=== PATIENT | male | born 1940 | race Caucasian/White ===

== ENCOUNTER 2025-10-19 06:33 | Inpatient (IN) | payer OTHER ==
[~2025-10-19] VITALS: Ht 177.8 cm; Wt 92.0 kg
--- NOTE | 2025-10-19 07:26 | ED.PDOC ---
History of Present Illness HPI Comments 85-year-old male presents here for [facility] as transfer. Patient was found to have acute kidney injury with a creatinine of 3. Patient states around Thanksgiving time he began to have significant vomiting and went to [facility] October 15. He was admitted there. He states however he did not like it there left against medical advice. He went to [facility] last night and was transferred to [facility] for admission. Patient states the vomiting has stopped. However he continues to feel weak. He also states he has significant leg swelling that began yesterday. Denies any fever or chills. Chief Complaint: General Weakness Time Seen by MD: 06:58 Allergies: Coded Allergies: NO KNOWN ALLERGIES (Unverified , 10/19/25) Mode of Arrival: EMS Past Medical History Past Medical History (Other): High blood pressure Surgical History (Other): Bilateralhip replacements in 2007 Family History Family History: Reviewed,noncontributory to illness Social History Smoker: Non-Smoker Alcohol: Denies ETOH Use Drugs: Denies Drug Use Lives In: Home All Other Systems: Reviewed and Negative Physical Exam General Appearance: No Apparent Distress, Normal HEENT: Normal ENT Inspection, Pharynx Normal, TMs Normal Neck: Full Range of Motion, Non-Tender, Normal, Normal Inspection Respiratory: Chest Non-Tender, Lungs Clear, No Accessory Muscle Use, No Respiratory Distress, Normal Breath Sounds Cardiovascular: No Edema, No JVD, No Murmur, No Gallop, Normal Peripheral Pulses, Regular Rate/Rhythm Breast Exam: Deferred Gastrointestinal: No Organomegaly, Normal Bowel Sounds, Soft Genitalia: Deferred Pelvic: Deferred Rectal: Deferred Extremities: Leg edema, Other (3+ pitting edema bilateral lower extremity) Musculoskeletal : Apperance: Normal Neurologic: Alert, 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 Was a procedure done?: No Differential Dx Considerations may include: Dehydration acute kidney injury, appendicitis, small-bowel obstruction, electrolyte disturbance X-Ray, Labs, Meds, VS Vital Signs Date Time Temp Pulse Resp B/P (MAP) Pulse Ox O2 Delivery O2 Flow Rate FiO2 10/19/25 08:26 70 15 99 Room Air* 0 21 10/19/25 08:26 97.5 70 15 93/57 (69) 99 97.5 10/19/25 07:01 97.4 69 17 98/56 (70) 99 97.4 10/19/25 06:49 97.7 66 14 129/68 96 97.7 Lab Test 10/19/25 08:06 Range/Units White Blood Count 8.2 4.4-10.8 10^3/uL Red Blood Count 4.02 L 4.5-5.90 10^6/uL Hemoglobin 12.2 L 13.5-17.5 g/dL Hematocrit 39.0 L 41.0-53.0 % Mean Corpuscular Volume 97.2 80.0-100.0 fL Mean Corpuscular Hemoglobin 30.4 28.0-32.0 pg Mean Corpuscular Hemoglobin Concent 31.3 L 32.0-36.0 g/dL Red Cell Distribution Width 15.7 H 11.8-14.3 % Platelet Count 81 L 140-450 10^3/uL Mean Platelet Volume 10.5 6.9-10.8 fL Neutrophils (%) (Auto) 37.0-80.0 % Lymphocytes (%) (Auto) 10.0-50.0 % Monocytes (%) (Auto) 0.0-12.0 % Basophils (%) (Auto) 0.0-2.0 % Neutrophils # (Auto) 1.6-8.6 10 ^3/uL Lymphocytes # (Auto) 0.4-5.4 10 ^3/uL Monocytes # (Auto) 0-1.3 10 ^3/uL Differential Total Cells Counted Pending Neutrophils % (Manual) Pending Band Neutrophils % (Manual) Pending Lymphocytes % (Manual) Pending Monocytes % (Manual) Pending Eosinophils % (Manual) Pending Basophils % (Manual) Pending Metamyelocytes % (manual) Pending Myelocytes % (Manual) Pending Promyelocytes % (Manual) Pending Blast Cells % (Manual) Pending Reactive Lymphocytes Pending Platelet Estimate Pending Sodium Level 144 136-145 mmol/L Potassium Level 5.2 H 3.5-5.1 mmol/L Chloride Level 112 H 98-107 mmol/L Carbon Dioxide Level 17 L 20-31 mmol/L Anion Gap 15 5-15 Blood Urea Nitrogen 119 *H 9-23 mg/dL Creatinine 3.06 H 0.700-1.30 mg/dL Glomerular Filtration Rate Calc 19 >90 mL/min BUN/Creatinine Ratio 38.9 H 10.0-20.0 Serum Glucose 77 74-106 mg/dL Calcium Level 8.0 L 8.7-10.4 mg/dL B-Type Natriuretic Peptide Pending 85-year-old male presents here from [facility]. I have reviewed all records from [facility]. I reviewed the physician record from [facility] which states the patient was seen there for bilateral lower extremity swelling. And generalized weakness. I reviewed his labs, CBC within normal limits, elevated BUN and elevated creatinine. Creatinine is 3. Patient also has slightly elevated potassium at 4.8. Troponin is negative. Chest x-ray with no evidence of acute pathology. At this time I have ordered labs here in the hospital. CBC within normal limits. BNP with a potassium elevated at 5.2, low CO2 of 17, BUN of 119 creatinine of 3.06. Exact cause of his acute kidney injuries unclear however this could be he has 2 new diagnosis of heart failure and decreased urine output. At this time BNP has been ordered and is pending. Hospitalist team has been contacted for admission. Time of 1ST Reevaluation: 07:25 Reevaluation 1ST: Unchanged Patient Education/Counseling: Diagnosis, Treatment Family Education/Counseling: No Family Present SEPSIS Sepsis Screen Date sepsis recognized/suspect: Oct 19, 2025 Time Sepsis recognized/suspect: 0649 Recent Procedure: No On Antibiotic Therapy: No Respiratory Rate >20: No Heart Rate >90: No Temp<36 C (96.8 F) or >38.3 C: No SBP <90 or MAP <65 mmHG: No New Acute Mental Status Change: No Is the patient on CPAP, BIPAP,: No Physician Orders Complete Blood Count (10/19/25 07:27) Manual Differential (10/19/25 08:06) B-Type Natriuretic Peptide (10/19/25 09:06) Vital Signs Date Time Temp Pulse Resp B/P (MAP) Pulse Ox O2 Delivery O2 Flow Rate FiO2 10/19/25 08:26 70 15 99 Room Air* 0 21 10/19/25 08:26 97.5 70 15 93/57 (69) 99 97.5 10/19/25 07:01 97.4 69 17 98/56 (70) 99 97.4 10/19/25 06:49 97.7 66 14 129/68 96 97.7 Laboratory Tests Test 10/19/25 08:06 White Blood Count 8.2 10^3/uL (4.4-10.8) Departure 1 Departure Time of Disposition: 07:26 Impression: Primary Impression: Acute kidney injury Additional Impressions: Hyperkalemia Bilateral edema of lower extremity Disposition: ADMITTED INPATIENT Condition: Fair Critical Care Note Critical Care Time?: No Stability Stability form required: No Heart Score Heart Score: Heart Score Response (Comments) Value History N/A 0 EKG N/A 0 Age N/A 0 Risk Factors N/A 0 Troponin N/A 0 Total 0 GARRY PALMER MD Oct 19, 2025 07:26
[2025-10-19 08:26] VITALS: PULSE 70; RESP 15; O2SAT 99
[2025-10-19 08:49] LABS: Sodium 144 mmol/L (136-145)
[2025-10-19 08:50] LABS: Anion Gap 15 (5-15)
[2025-10-19 08:52] LABS: Calcium 8.0 mg/dL (8.7-10.4); Carbon Dioxide 17 mmol/L (20-31); Chloride 112 mmol/L (98-107); Potassium 5.2 mmol/L (3.5-5.1)
[2025-10-19 08:55] LABS: BUN/Creatinine Ratio 38.9 (10.0-20.0); Glucose 77 mg/dL (74-106)
[2025-10-19 08:56] LABS: Hematocrit 39.0 % (41.0-53.0); Hemoglobin 12.2 g/dL (13.5-17.5); Mean Corpuscular Hemoglobin 30.4 pg (28.0-32.0); Mean Corpuscular Volume 97.2 fL (80.0-100.0)
[2025-10-19 08:59] LABS: Blood Urea Nitrogen 119 mg/dL (9-23)
[2025-10-19] MEDS ORDERED: ONDANSETRON HCL 4 MG/2 ML VIAL IV PRN (09:30)
[2025-10-19] MEDS ORDERED: DOCUSATE SOD 100 MG CAP PO PRN (09:30)
[2025-10-19] MEDS ORDERED: TEMAZEPAM 15 MG CAP PO PRN (09:30)
[2025-10-19] MEDS ORDERED: NITROGLYCERIN 0.4 MG SL TAB SL PRN (09:30)
--- NOTE | 2025-10-19 09:32 | DVHHP2 ---
History of Present Illness Reason for Visit: weakness and ble History of Present Illness 85-year-old male with a past medical history of bladder cancer (in remission), hypertension, and bilateral hip replacements presents with generalized weakness and bilateral lower extremity swelling. Patient reports that he initially experienced shortness of breath at home shortly before Thanksgiving and was taken to [facility], where he was admitted for eight days. He signed out against medical advice (AMA) due to concerns about lack of response to his calls for assistance. He returned home and remained sitting in his living room for about a day and a half before his neighbor found him and brought him to [facility]. There, he was noted to have diarrhea, which is ongoing, and had some vomiting that has since resolved. Due to his complex history and preference for [facility] where he receives most of his care, he was transferred here for further evaluation. At [facility], labs showed a creatinine of 3.20 and a WBC count of 81,000. Chest x-ray there was unremarkable. Labs in the ED here revealed normal white count, hemoglobin 12.2 and hematocrit 39.0, but platelets were low. Potassium was 5.2, chloride 112, CO2 17, BUN 119, creatinine 3.06, GFR 19, and calcium 8.0. Chest x-ray from outside remained unremarkable. Due to these findings and history, the patient will be admitted for further workup of acute kidney injury, hyperkalemia, and generalized weakness. Past Medical History See HPI above Past Surgical History See HPI above Family History Reviewed, non-contributory to the management of this case. Past Social History The patient lives at home, denies smoking, alcohol or illicit drugs abuse. Review of Systems Constitutional: No: Fever, Chills, Sweats, Weakness, Malaise, Other Eyes: No: Pain, Vision change, Conjunctivae inflammation, Eyelid inflammation, Other, Redness ENT: No: Ear pain, Ear discharge, Nose pain, Nose discharge, Nose congestion, Mouth pain, Mouth swelling, Throat pain, Throat swelling, Other Respiratory: No: Cough, Dry, Shortness of breath, SOB with excertion, Wheezing, Hemoptysis, Pleuritic Pain, Sputum, Wheezing, Other Cardiovascular: No: Chest Pain, Palpitations, Orthopnea, Paroxysmal Noc. Dyspnea, Edema, Lt Headedness, Other Gastrointestinal: Diarrhea; No: Nausea, Vomiting, Abdominal Pain, Constipation, Melena, Hematochezia, Other Genitourinary: No Dysuria, No Frequency, No Incontinence, No Hematuria, No Retention, No Other Musculoskeletal: leg pain; No: other, neck pain, shoulder pain, arm pain, back pain, hand pain, foot pain Skin: Other (Altered blistering to bilateral lower extremities no erythema is mild bruising also noted and bilateral lower extremity edema); No: Rash, Lesions, Jaundice, Bruising Neurological: Weakness; No: Numbness, Incoordination, Change in speech, Confusion, Seizures, Other Allergies: Coded Allergies: NO KNOWN ALLERGIES (Unverified , 10/19/25) Exam Vital Signs Vital Signs Date Time Temp Pulse Resp B/P (MAP) Pulse Ox O2 Delivery O2 Flow Rate FiO2 10/19/25 08:26 70 15 99 Room Air* 0 21 10/19/25 08:26 97.5 93/57 (69) 97.5 General Appearance: Alert, Oriented X3, Cooperative, No acute distress HEENT: Atraumatic, PERRLA, EOMI, Mucous membr. moist/pink Respiratory: Clear to auscultation, Normal air movement Cardiovascular: Regular rate, Normal S1, Normal S2, No murmurs Abdominal: Normal bowel sounds, Soft, No tenderness, No hepatospenomegaly, Other (Perineum swelling) Extremities: No clubbing, No cyanosis, Other (Bilateral lower extremity with edema scattered blistering to bilateral lower extremity some scattered bruising no open wounds compartments soft neurovascular intact) Skin: No rashes, No breakdown, No significant lesion Neuro: Other (Neuro nonfocal) Psych/Mental Status: Mental status NL, Mood NL Labs/Xrays Reviewed labs from outside I reviewed labs, imaging CT scan abdomen pelvis, EKG and all diagnostic studies on this patient from ED records and the medical chart Chest x-ray from outside unremarkable Labs Test 10/19/25 08:06 Range/Units White Blood Count 8.2 4.4-10.8 10^3/uL Red Blood Count 4.02 L 4.5-5.90 10^6/uL Hemoglobin 12.2 L 13.5-17.5 g/dL Hematocrit 39.0 L 41.0-53.0 % Mean Corpuscular Volume 97.2 80.0-100.0 fL Mean Corpuscular Hemoglobin 30.4 28.0-32.0 pg Mean Corpuscular Hemoglobin Concent 31.3 L 32.0-36.0 g/dL Red Cell Distribution Width 15.7 H 11.8-14.3 % Platelet Count 81 L 140-450 10^3/uL Mean Platelet Volume 10.5 6.9-10.8 fL Neutrophils (%) (Auto) 37.0-80.0 % Lymphocytes (%) (Auto) 10.0-50.0 % Monocytes (%) (Auto) 0.0-12.0 % Basophils (%) (Auto) 0.0-2.0 % Neutrophils # (Auto) 1.6-8.6 10 ^3/uL Lymphocytes # (Auto) 0.4-5.4 10 ^3/uL Monocytes # (Auto) 0-1.3 10 ^3/uL Sodium Level 144 136-145 mmol/L Potassium Level 5.2 H 3.5-5.1 mmol/L Chloride Level 112 H 98-107 mmol/L Carbon Dioxide Level 17 L 20-31 mmol/L Anion Gap 15 5-15 Blood Urea Nitrogen 119 *H 9-23 mg/dL Creatinine 3.06 H 0.700-1.30 mg/dL Glomerular Filtration Rate Calc 19 >90 mL/min BUN/Creatinine Ratio 38.9 H 10.0-20.0 Serum Glucose 77 74-106 mg/dL Calcium Level 8.0 L 8.7-10.4 mg/dL SEPSIS Sepsis Screen Date sepsis recognized/suspect: Oct 19, 2025 Time Sepsis recognized/suspect: 0649 Recent Procedure: No On Antibiotic Therapy: No Respiratory Rate >20: No Heart Rate >90: No Temp<36 C (96.8 F) or >38.3 C: No SBP <90 or MAP <65 mmHG: No New Acute Mental Status Change: No Is the patient on CPAP, BIPAP,: No Physician Orders Complete Blood Count (10/19/25 07:27) Manual Differential (10/19/25 08:06) B-Type Natriuretic Peptide (10/19/25 09:06) Troponin-I Hs (10/19/25 09:22) Troponin-I Hs (10/19/25 10:22) Troponin-I Hs (10/19/25 12:22) Sodium Zirconium Cyclosilicate (Lokelma) (10/19/25 09:30) Strict I & O QSHIFT (10/19/25 09:22) Kidney (10/19/25 09:22) Admit (10/19/25 09:22) Allergies (10/19/25 09:22) Code Status (10/19/25 09:22) Temazepam (Restoril) (10/19/25 09:30) Ondansetron Hcl (Zofran) (10/19/25 09:30) Docusate Sodium Capsule (Colace Capsule) (10/19/25 09:30) Complete Blood Count (10/20/25 04:00) Comprehensive Metabolic Panel (10/20/25 04:00) Cardiac Diet-2gna,Lofat,Lochol (10/19/25 Breakfast) Pt Request For Service (10/19/25 09:22) Echo 2d Mode Cardiac Dop (10/19/25 09:22) Condition: Stable (10/19/25 09:22) BRP (10/19/25 09:22) Morphine Sulfate Injection (10/19/25 09:30) Sequential Compression Device (10/19/25 ) Nitroglycerin Sublingual (Ntrostat Subli (10/19/25 09:30) Stat Ekg For Chest Pain (10/19/25 09:22) Notify Md Of Changes From Base (10/19/25 09:22) Well Service Floorperson For 24 Hours (10/19/25 09:22) Emergency Dysrhythmia Protocol (10/19/25 09:22) Rhythm Strips Once Every Shift (10/19/25 09:22) Oxygen By Nasal Cannula (10/19/25 09:22) *[facility] (10/19/25 09:22) * Wound Consult (10/19/25 ) Bilat Lower Dvt (10/19/25 09:22) Vital Signs Date Time Temp Pulse Resp B/P (MAP) Pulse Ox O2 Delivery O2 Flow Rate FiO2 10/19/25 08:26 70 15 99 Room Air* 0 21 10/19/25 08:26 97.5 70 15 93/57 (69) 99 97.5 10/19/25 07:01 97.4 69 17 98/56 (70) 99 97.4 10/19/25 06:49 97.7 66 14 129/68 96 97.7 Laboratory Tests Test 10/19/25 08:06 White Blood Count 8.2 10^3/uL (4.4-10.8) Assessment/Plan Assessment/Plan 85-year-old male admitted for acute kidney injury with hyperkalemia, generalized weakness, and diarrhea in the setting of recent hospitalization and poor oral intake. Acute Kidney Injury (Cr 3.06, GFR 19, BUN 119) Likely multifactorial: volume depletion, recent illness, possible medication effects Renal consult dr hartman fu results Renal ultrasound fu results IV fluid hydration (monitor for fluid overload due to age and cardiac status) Monitor BMP and renal function daily Hold nephrotoxic medications acute Hyperkalemia (K 5.2) Stat repeat potassium level EKG to assess for arrhythmias ordered [facility] Monitor renal function closely acute Generalized weakness / deconditioning Likely secondary to recent illness and inactivity Physical therapy evaluation Encourage mobility and ambulation as tolerated acute ble edema ordered bnp and trop eval if heart failure ordered echo ordered us to eval for dvt strict i/o's acute Diarrhea (persistent) Stool studies (C. diff,) Monitor fluid and electrolyte status Hold any potential offending medications Supportive care with hydration acute Thrombocytopenia (platelets low) Trend platelet counts Review any recent medications or infections Hematology consult if platelets continue to drop or symptomatic no dvt ppx for now History of bladder cancer (in remission) No acute intervention at this time Continue to monitor for any urinary symptoms or hematuria chronic problems Hypertension Bladder cancer (in remission) Bilateral hip replacements FEN / PPx Fluids: IV hydration, monitor for overload Electrolytes: Daily BMP, potassium, BUN/Cr Nutrition: cardiac diet DVT Prophylaxis: SCDs while inpatient GI Prophylaxis: no gi ppx since no hx of gerds or gi bleed Disposition Admit to medical floor for renal monitoring, electrolyte correction, and workup of diarrhea and weakness. Consult nephrology consulted Plan discussed with: Patient My Orders Orders - BENNETT MENDOZA DNP Procedure Category Date Status Time Troponin-I Hs LAB 10/19/25 Transmitted 09:22 Troponin-I Hs LAB 10/19/25 Transmitted 10:22 Troponin-I Hs LAB 10/19/25 Transmitted 12:22 Sodium Zirconium PHA 10/19/25 Transmitted Cyclosilicate 09:30 Strict I & O CANDIDA 10/19/25 Transmitted 09:22 Kidney US 10/19/25 Transmitted 09:22 Admit ADMIT 10/19/25 Transmitted 09:22 Allergies CANDIDA 10/19/25 Transmitted 09:22 Code Status CODE 10/19/25 Transmitted 09:22 Temazepam (Restoril) PHA 10/19/25 Transmitted 09:30 Ondansetron Hcl PHA 10/19/25 Transmitted (Zofran) 09:30 Docusate Sodium PHA 10/19/25 Transmitted Capsule (Colace 09:30 Complete Blood Count LAB 10/20/25 Verified 04:00 Comprehensive LAB 10/20/25 Verified Metabolic Panel 04:00 Cardiac DIET 10/19/25 Transmitted Diet-2gna,Lofat,Lochol Breakfast Pt Request For Service PT 10/19/25 Transmitted 09:22 Echo 2d Mode Cardiac US 10/19/25 Transmitted DOP 09:22 Condition: Stable CANDIDA 10/19/25 Transmitted 09:22 BRP CANDIDA 10/19/25 Transmitted 09:22 Morphine Sulfate PHA 10/19/25 Transmitted Injection 09:30 Sequential CANDIDA 10/19/25 Transmitted Compression Device Nitroglycerin PHA 10/19/25 Transmitted Sublingual (Ntrostat 09:30 Stat Ekg For Chest CANDIDA 10/19/25 Transmitted Pain 09:22 Notify Md Of Changes [facility] 10/19/25 Transmitted From Base 09:22 Well Service Floorperson For [facility] 10/19/25 Transmitted 24 Hours 09:22 Emergency Dysrhythmia [facility] 10/19/25 Transmitted Protocol 09:22 Rhythm Strips Once [facility] 10/19/25 Transmitted Every Shift 09:22 Oxygen By Nasal RT 10/19/25 Transmitted Cannula 09:22 *[facility] CONS 10/19/25 Transmitted -[place] 09:22 * Wound Consult CONS 10/19/25 Transmitted Bilat Lower Dvt US 10/19/25 Transmitted 09:22 Date of Service: Oct 19, 2025 Billing Provider: BENNETT MENDOZA DNP Common Visit Codes: 32706-[id number] INP/OBS CARE (HIGH) BENNETT MENDOZA DNP Oct 19, 2025 09:32
[2025-10-19 09:33] LABS: Total Cells Counted 100.0 (100)
[2025-10-19 09:34] LABS: RBC Morphology Normal
[2025-10-19] MEDS ORDERED: MORPHINE SULFATE 4 MG/ML SYR/VIAL IV PRN (09:45)
[2025-10-19] MEDS: SODIUM ZIRCONIUM CYCL 10 GM PAK PO ONE (09:51)
[2025-10-19] MEDS: SODIUM CHLORIDE 0.9% 1,000 ML IV SCH (10:16)
--- NOTE | 2025-10-19 10:29 | DVH ---
CLINICAL HISTORY: eval for dvt to ble/swelling TECHNIQUE: Color and duplex doppler imagine of the bilateral lower extremity veins was performed. Vessel compression and augmentation if possible was also performed. COMPARISON: None FINDINGS: Right Lower Extremity: Right common femoral vein: Normal compressibility and flow. Right superficial femoral vein: Normal compressibility and flow. Right popliteal vein: Normal compressibility and flow. Left Lower Extremity: Left common femoral vein: Normal compressibility and flow. Left superficial femoral vein: Normal compressibility and flow. Left popliteal vein: Normal compressibility and flow. IMPRESSION: NO SONOGRAPHIC EVIDENCE FOR DEEP VENOUS THROMBOSIS IN THE BILATERAL LOWER EXTREMITY VEINS.
--- NOTE | 2025-10-19 10:31 | DVH ---
CLINICAL HISTORY: eval for acute on chronic mandeep TECHNIQUE: Complete ultrasound exam of the kidneys and bladder was performed. COMPARISON: None FINDINGS: The right kidney has mildly increased echogenicity and measures 9.7 cm. There is no focal parenchymal abnormality or evidence for stone. There is mild pelvicaliectasis. The left kidney has increased echogenicity and measures 12.2 cm. There is no focal parenchymal abnormality or evidence for stone. There is moderate to severe hydronephrosis. The bladder contains a possible 10 mm stone. IMPRESSION: Echogenic kidneys, compatible medical renal disease. Moderate to severe left hydronephrosis. Mild right renal pelvicaliectasis. Possible 10 mm bladder stone.
--- NOTE | 2025-10-19 12:57 | DVHCONRES ---
Date Seen: Oct 19, 2025 Resident Creating Document: ZAY AUGUSTE RESIDENT Referring Physician Erin VERNON Reason for Consultation jeanette History of Present Illness [place] is a 85-year-old male with a past medical history of bladder cancer (in remission), hypertension, and bilateral hip replacements presents with generalized weakness and bilateral lower extremity swelling. Patient reports that he initially experienced shortness of breath at home shortly before Thanksgiving and was taken to [facility], where he was admitted for eight days. He signed out against medical advice (AMA) due to concerns about lack of response to his calls for assistance. He returned home and remained sitting in his living room for about a day and a half before his neighbor found him and brought him to [facility]. There, he was noted to have diarrhea, which is ongoing, and had some vomiting that has since resolved. Due to his complex history and preference for [facility] where he receives most of his care, he was transferred here for further evaluation. PMH: Bladder cancer and HTN PSH: Bilateral hip replacement Family history: Reviewed, noncontributory Social history: Lives at home. Denies smoking, alcohol and other drug abuse Allergies: No known allergies Patient seen and examined at the bedside. Patient reporting having diarrhea, leg pain and weakness. Rest of ROS is negative Allergies: Coded Allergies: NO KNOWN ALLERGIES (Unverified , 10/19/25) Home Meds Reported Medications Tamsulosin Hcl (Tamsulosin Hcl) 0.4 Mg Cap, 1 CAP PO DAILY 10/19/25 Finasteride (Finasteride) 5 Mg Tab, 1 TAB PO DAILY 10/19/25 Metoprolol Succinate (Metoprolol Succinate Er) 50 Mg Tab, 1 TAB PO DAILY 10/19/25 Current Medications Current Medications Medications (Trade) Dose Ordered Sig/Jhon Route PRN Reason Start Time Stop Time Status Last Admin Temazepam (Restoril) 15 mg QHSP PRN PO FOR INSOMNIA 10/19/25 09:30 Ondansetron HCl (Zofran) 4 mg Q4HP PRN IV NAUSEA / VOMITING 10/19/25 09:30 Docusate Sodium (Colace Capsule) 100 mg BIDPRN PRN PO FOR CONSTIPATION 10/19/25 09:30 Morphine Sulfate 2 mg Q4HPRN PRN IV SEVERE PAIN (7-10 PAIN SCALE) 10/19/25 09:45 Nitroglycerin (Ntrostat Sublingual) 0.4 mg Q5MINP PRN SL FOR CHEST PAIN 10/19/25 09:30 Sodium Chloride 1,000 ml @ 75 mls/hr [id number] IV 10/19/25 10:15 10/19/25 11:33 DC 10/19/25 10:16 Sodium Bicarbonate 50 ml/ Sodium Chloride 1,050 ml @ 100 mls/hr [id number] IV 10/19/25 11:30 Vital Signs Vital Signs Date Time Temp Pulse Resp B/P (MAP) Pulse Ox O2 Delivery O2 Flow Rate FiO2 10/19/25 11:29 71 14 102/54 (70) 100 10/19/25 08:26 Room Air* 0 21 10/19/25 08:26 97.5 97.5 Physical Exam General Appearance: Alert, Oriented X3, Cooperative, No acute distress HEENT: Atraumatic, PERRLA, EOMI, Mucous membr. moist/pink Respiratory: Clear to auscultation, Normal air movement Cardiovascular: Regular rate, Normal S1, Normal S2, No murmurs Abdominal: Normal bowel sounds, Soft, No tenderness, No hepatospenomegaly, Othe r (Perineum swelling) Extremities: Bilateral lower extremity with edema scattered blistering to bilateral lower extremity some scattered bruising no open wounds compartments soft neurovascular intact Skin: No rashes, No breakdown, No significant lesion Neuro: Other (Neuro nonfocal) Psych/Mental Status: Mental status NL, Mood NL Labs/Diagnostic Data Labs Test 10/19/25 10:34 10/19/25 08:06 Range/Units Troponin I High Sensitivity 12 </=54 ng/L White Blood Count 8.2 4.4-10.8 10^3/uL Red Blood Count 4.02 L 4.5-5.90 10^6/uL Hemoglobin 12.2 L 13.5-17.5 g/dL Hematocrit 39.0 L 41.0-53.0 % Mean Corpuscular Volume 97.2 80.0-100.0 fL Mean Corpuscular Hemoglobin 30.4 28.0-32.0 pg Mean Corpuscular Hemoglobin Concent 31.3 L 32.0-36.0 g/dL Red Cell Distribution Width 15.7 H 11.8-14.3 % Platelet Count 81 L 140-450 10^3/uL Mean Platelet Volume 10.5 6.9-10.8 fL Neutrophils (%) (Auto) 37.0-80.0 % Lymphocytes (%) (Auto) 10.0-50.0 % Monocytes (%) (Auto) 0.0-12.0 % Basophils (%) (Auto) 0.0-2.0 % Neutrophils # (Auto) 1.6-8.6 10 ^3/uL Lymphocytes # (Auto) 0.4-5.4 10 ^3/uL Monocytes # (Auto) 0-1.3 10 ^3/uL Differential Total Cells Counted 100.0 100 Neutrophils % (Manual) 34 L 37.0-80.0 Band Neutrophils % (Manual) 0 Lymphocytes % (Manual) 16 10.0-50.0 Monocytes % (Manual) 50 H 0-12 Eosinophils % (Manual) 0 0-7 Basophils % (Manual) 0 0.0-2.0 Metamyelocytes % (manual) 0 Myelocytes % (Manual) 0 Promyelocytes % (Manual) 0 Blast Cells % (Manual) 0 Reactive Lymphocytes 0 Platelet Estimate Decreased Red Blood Cell Morphology Normal Sodium Level 144 136-145 mmol/L Potassium Level 5.2 H 3.5-5.1 mmol/L Chloride Level 112 H 98-107 mmol/L Carbon Dioxide Level 17 L 20-31 mmol/L Anion Gap 15 5-15 Blood Urea Nitrogen 119 *H 9-23 mg/dL Creatinine 3.06 H 0.700-1.30 mg/dL Glomerular Filtration Rate Calc 19 >90 mL/min BUN/Creatinine Ratio 38.9 H 10.0-20.0 Serum Glucose 77 74-106 mg/dL Calcium Level 8.0 L 8.7-10.4 mg/dL B-Type Natriuretic Peptide 47.48 0-100 pg/mL Assessment JEANETTE likely hemodynamic mediated VMN Moderate to severe left hydronephrosis Nephrolithiasis Hyperkalemia Diarrhea Dehydration Plan/recommendations IV fluids half NS Continuously monitor lab Urine studies, PTH and vit D Rucker catheter Renal ultrasound showed compatible with medical renal disease and hydronephrosis with a 10 mm bladder stone Avoid nephrotoxic agents Blood pressure control Rest of management primary team Patient seen and examined by myself today on rounds with the medicine resident, I agree with his assessment and plan Case discussed with the Dr. Bills Plan discussed with: Patient, Other (rn) ZAY AUGUSTE Oct 19, 2025 12:57 YECENIA BILLS MD Oct 20, 2025 09:44
[2025-10-19 13:14] LABS: Magnesium 2.0 mg/dL (1.6-2.6)
[2025-10-19] MEDS: SODIUM BICARB 50mEq/50ml Vial 50 ML in SOD CHL 0.45% 1,000 ML IV SCH (13:18)
[2025-10-19 14:21] LABS: Protein, Urine 21.6 mg/dL (1-14)
[2025-10-19 14:22] LABS: Urine Protein, UAD Negative (Negative)
[2025-10-19 15:24] LABS: Hepatitis B Surface Antigen Negative (Negative); Hepatitis C Antibody Negative (Negative)
[2025-10-19 19:32] VITALS: BP 114/67; PULSE 65; RESP 20; TEMP 97.5; O2SAT 95
[2025-10-19] MEDS ORDERED: METO-289 PO (20:32)
[2025-10-19] MEDS ORDERED: FIN5T PO (20:32)
[2025-10-19] MEDS ORDERED: TAMS0.4C39 PO (20:32)
[2025-10-19 21:00] VITALS: BP_SYST 105; BP_SYST 112; BP_DIAS 63; BP_DIAS 66; PULSE 69; PULSE 79; RESP 19; RESP 20; TEMP 97.2; TEMP 98; O2SAT 95; O2SAT 98
[2025-10-20] VITALS (9 sets, daily range): BP systolic 90–128; BP diastolic 50–74; PULSE 56–142; RESP 17–20; TEMP 96.2–97.7; O2SAT 91–96
[2025-10-20 08:05] LABS: Hematocrit 31.0 % (41.0-53.0); Hemoglobin 9.9 g/dL (13.5-17.5); Mean Corpuscular Hemoglobin 30.8 pg (28.0-32.0); Mean Corpuscular Volume 96.3 fL (80.0-100.0)
[2025-10-20 08:36] LABS: Total Cells Counted 100.0 (100)
[2025-10-20 08:49] LABS: Alanine Aminotransferase 20 U/L (7-40); Alkaline Phosphatase 49 U/L (46-116); Carbon Dioxide 22 mmol/L (20-31)
[2025-10-20 08:50] LABS: Anion Gap 12 (5-15); BUN/Creatinine Ratio 36.3 (10.0-20.0); Bilirubin, Total 0.7 mg/dL (0.2-1.0); Potassium 4.6 mmol/L (3.5-5.1); Sodium 145 mmol/L (136-145)
[2025-10-20 08:51] LABS: Albumin 2.1 g/dL (3.2-4.8); Blood Urea Nitrogen 78 mg/dL (9-23); Calcium 7.4 mg/dL (8.7-10.4); Chloride 111 mmol/L (98-107); Glucose 69 mg/dL (74-106); Total Protein 3.8 g/dL (5.7-8.2)
--- NOTE | 2025-10-20 11:17 | DVHPN2 ---
Progress Note Date Seen: Oct 20, 2025 Medical Necessity Reason Pt with a Central, PICC or Fol: No Subjective Patient reports: No new complaints Other Systems: Patient seen and examined by myself today in follow-up Objective vital signs Vital Sign Date Time Temp Pulse Resp B/P (MAP) Pulse Ox O2 Delivery O2 Flow Rate FiO2 10/20/25 09:00 97.6 62 18 111/72 (85) 93 97.6 10/20/25 08:00 Nasal Cannula* 3 32 Total Intake and Output 10/19/25 10/19/25 10/20/25 15:00 23:00 07:00 Intake Total 200 ml 300 ml 300 ml Output Total 200 ml 1120 ml 550 ml Balance 0 ml -820 ml -250 ml medications Current Medications Medications Dose Ordered Sig/Jhon Route Start Time Stop Time Status Last Admin Dose Admin Docusate Sodium 100 mg BIDPRN PRN PO 10/19/25 09:30 Sodium Bicarbonate 50 ml/ Sodium Chloride 1,050 ml @ 100 mls/hr [id number] IV 10/19/25 11:30 10/19/25 22:19 100 MLS/HR Examination: LUNGS:Normal, CVS:Normal, MSK:Abnormal laboratory and microbiology Laboratory Tests 10/20/25 06:39 Test 10/20/25 06:39 Range/Units Serum Glucose 69 L 74-106 mg/dL Problem List/Assessment/Plan Problem List/Assessment/Plan Acute kidney injury superimposed Chronic Kidney Disease secondary hemodynamic mediated, FeNa > 2% Moderate to severe left hydronephrosis Nephrolithiasis Hyperkalemia Metabolic acidosis Hypoalbuminemia Chronic kidney disease Recommendations Kidney function slowly improving Increased urine output Strict I&Os DC IV fluid Albumin 25% IV piggyback Bumex 1 mg IV b.i.d. Urology consult We will continue to follow up Plan discussed with: Patient My Orders My Orders Orders - YECENIA MINA MD Procedure Category Date Status Time Sod Chl 0.45% PHA 10/19/25 In Process (Sodi... W/Sodium 11:30 Albumin Ivpb PHA 10/20/25 Verified 11:15 Bumetanide Injection PHA 10/20/25 Verified (Bumex Injection) 11:15 YECENIA MINA MD Oct 20, 2025 11:17
--- NOTE | 2025-10-20 11:21 | DVHPN2 ---
Subjective looks rested/ Changes from previous H/P or p: No Changes Eyes: No Pain, No Vision change, No Conjunctivae inflammation, No Eyelid inflammation, No Other, No Redness ENT: No Ear pain, No Ear discharge, No Nose pain, No Nose discharge, No Nose congestion, No Mouth pain, No Mouth swelling, No Throat pain, No Throat swelling, No Other Cardiovascular: No Chest Pain, No Palpitations, No Orthopnea, No Paroxysmal Noc. Dyspnea, No Edema, No Lt Headedness, No Other Respiratory: No Cough, No Dry, No Shortness of breath, No SOB with excertion, No Wheezing, No Hemoptysis, No Pleuritic Pain, No Sputum, No Other Gastrointestinal: No Nausea, No Vomiting, No Abdominal Pain; Diarrhea; No Constipation, No Melena, No Hematochezia, No Other Genitourinary: No Dysuria, No Frequency, No Incontinence, No Hematuria, No Retention, No Other Musculoskeletal: No other, No neck pain, No shoulder pain, No arm pain, No back pain, No hand pain; leg pain; No foot pain Skin: No Rash, No Lesions, No Jaundice, No Bruising; Other (Altered blistering to bilateral lower extremities no erythema is mild bruising also noted and bilateral lower extremity edema) Objective Vitals Vital Signs Date Time Temp Pulse Resp B/P (MAP) Pulse Ox O2 Delivery O2 Flow Rate FiO2 10/20/25 09:00 97.6 62 18 111/72 (85) 93 97.6 10/20/25 08:00 Nasal Cannula* 3 32 Intake/Output Intake and Output 10/20/25 07:00 Intake Total 800 ml Output Total 1870 ml Balance -1070 ml Intake Oral 300 ml IV Total 500 ml Output Urine Total 1870 ml General Appearance: Oriented X3, Cooperative, No acute distress Lungs: Clear to auscultation Cardiovascular: Regular rate, Normal S1, Normal S2 Musculoskeletal: Normal sensory function, Normal motor function Neuro: Normal gait, Normal speech, Strength at 5/5 X4 ext, Sensation intact Psych/Mental Status: Mental status NL, Mood NL Medications Current Medications Medications Dose Ordered Sig/Jhon Route Start Time Stop Time Status Last Admin Dose Admin Temazepam 15 mg QHSP PRN PO 10/19/25 09:30 Ondansetron HCl 4 mg Q4HP PRN IV 10/19/25 09:30 Docusate Sodium 100 mg BIDPRN PRN PO 10/19/25 09:30 Morphine Sulfate 2 mg Q4HPRN PRN IV 10/19/25 09:45 Nitroglycerin 0.4 mg Q5MINP PRN SL 10/19/25 09:30 Sodium Bicarbonate 50 ml/ Sodium Chloride 1,050 ml @ 100 mls/hr [id number] IV 10/19/25 11:30 10/19/25 22:19 100 MLS/HR Laboratory Results Laboratory Tests 10/20/25 06:39 Chemistry Test 10/20/25 06:39 Albumin 2.1 g/dL (3.2-4.8) L Calcium Level 7.4 mg/dL (8.7-10.4) L Total Protein 3.8 g/dL (5.7-8.2) L LFT Test 10/20/25 06:39 Alanine Aminotransferase (ALT) 20 U/L (7-40) Alkaline Phosphatase 49 U/L (46-116) Aspartate Amino Transferase (AST) 19 U/L (13-40) Total Bilirubin 0.7 mg/dL (0.2-1.0) Urinalysis Test 10/19/25 07:30 Urine Color Light-yellow (Yellow) Urine Clarity Turbid (Clear) H Urine pH 5.5 (5.0-9.0) Urine Specific [place] 1.014 (1.001-1.035) Urine Protein Negative (Negative) Urine Ketones Negative (Negative) Urine Blood 1+ /uL (Negative) H Urine Nitrite Negative (Negative) Urine Bilirubin Negative (Negative) Urine Urobilinogen Normal mg/dL (Negative) Urine Leukocyte Esterase 3+ /uL (Negative) Urine RBC 6 /hpf (0 - 3) Urine Microscopic WBC 78 /HPF (0-3) H Urine Squamous Epithelial Cells Few /hpf (<5) Urine Bacteria Few /hpf (None Seen) H Urine Creatinine 40.34 mg/dL (30.0-125.0) Urine Protein/Creatinine Ratio 0.54 Urine Sodium 90 mmol/L (40-220) Urine Glucose Normal mg/dL (Normal) Urine Total Protein 21.6 mg/dL (1-14) H Assessment/Plan Assessment/Plan acute kidney injury- secondary to dehydration now mild chf fron fluids dc fluids/add lasix small dose associated obstructive uropathy- [facility] 2023 bph resume home meds/check bladder scan await above results thrombocytopenia fluid blisters/ulcers from broken blisters lower extremities Plan discussed with: Patient, Other My Orders Orders - CHRISTELLE FALK MD Procedure Category Date Status Time * Urology Consult CONS 10/20/25 Transmitted 10:45 Prothrombin Time W/ LAB 10/20/25 Logged INR 10:46 Date of Service: Oct 20, 2025 Billing Provider: CHRISTELLE FALK MD Common Visit Codes: [id number] INP/OBS CARE(MOD) CHRISTELLE FALK MD Oct 20, 2025 11:21
[2025-10-20 12:42] LABS: INR 1.11 (0.9-1.15); Prothrombin Time 11.6 sec (9.3-11.8)
[2025-10-20] MEDS: FINASTERIDE 5 MG TAB PO ONE (12:51)
[2025-10-20] MEDS: TAMSULOSIN HYDROCHLORIDE 0.4 MG CAP PO ONE (12:51)
[2025-10-20] MEDS: FUROSEMIDE 20 MG/2 ML VIAL IV ONE (12:53)
[2025-10-20] MEDS: ALBUMIN 25% 100 ML IV ONE (12:53)
[2025-10-20] MEDS: BUMETANIDE 1mg/4ml VIAL (0.25mg/ml) IV SCH (18:51)
[2025-10-20] MEDS: DIGOXIN 0.125 MG TAB PO ONE (21:43)
[2025-10-20] MEDS: MIDODRINE HCL 10 MG TAB PO SCH (22:19)
[2025-10-21] VITALS (8 sets, daily range): BP systolic 80–106; BP diastolic 43–71; PULSE 61–92; RESP 17–20; TEMP 96.4–97.9; O2SAT 90–100
[2025-10-21] MEDS ORDERED: MIDODRINE HCL 10 MG TAB PO SCH (06:00)
[2025-10-21] MEDS: FINASTERIDE 5 MG TAB PO SCH (09:27)
--- NOTE | 2025-10-21 10:13 | DVHPN2 ---
Subjective looks rested/ Changes from previous H/P or p: No Changes Eyes: No Pain, No Vision change, No Conjunctivae inflammation, No Eyelid inflammation, No Other, No Redness ENT: No Ear pain, No Ear discharge, No Nose pain, No Nose discharge, No Nose congestion, No Mouth pain, No Mouth swelling, No Throat pain, No Throat swelling, No Other Cardiovascular: No Chest Pain, No Palpitations, No Orthopnea, No Paroxysmal Noc. Dyspnea, No Edema, No Lt Headedness, No Other Respiratory: No Cough, No Dry, No Shortness of breath, No SOB with excertion, No Wheezing, No Hemoptysis, No Pleuritic Pain, No Sputum, No Other Gastrointestinal: No Nausea, No Vomiting, No Abdominal Pain; Diarrhea; No Constipation, No Melena, No Hematochezia, No Other Genitourinary: No Dysuria, No Frequency, No Incontinence, No Hematuria, No Retention, No Other Musculoskeletal: No other, No neck pain, No shoulder pain, No arm pain, No back pain, No hand pain; leg pain; No foot pain Skin: No Rash, No Lesions, No Jaundice, No Bruising; Other (Altered blistering to bilateral lower extremities no erythema is mild bruising also noted and bilateral lower extremity edema) Objective Vitals Vital Signs Date Time Temp Pulse Resp B/P (MAP) Pulse Ox O2 Delivery O2 Flow Rate FiO2 10/21/25 05:00 96.5 77 17 96/60 (72) 98 96.5 10/20/25 20:00 Nasal Cannula* 3 32 Intake/Output Intake and Output 10/21/25 07:00 Intake Total 1420 ml Output Total 800 ml Balance 620 ml Intake Oral 1420 ml Output Urine Total 800 ml # Voids 4 # Bowel Movements 2 General Appearance: Oriented X3, Cooperative, No acute distress Lungs: Clear to auscultation Cardiovascular: Regular rate, Normal S1, Normal S2 Musculoskeletal: Normal sensory function, Normal motor function Neuro: Normal gait, Normal speech, Strength at 5/5 X4 ext, Sensation intact Psych/Mental Status: Mental status NL, Mood NL Medications Current Medications Medications Dose Ordered Sig/Jhon Route Start Time Stop Time Status Last Admin Dose Admin Docusate Sodium 100 mg BIDPRN PRN PO 10/19/25 09:30 Bumetanide 1 mg BIDD IV 10/20/25 18:00 10/20/25 18:51 1 MG Tamsulosin HCl 0.4 mg QPM PO 10/21/25 18:00 Finasteride 5 mg DAILY PO 10/21/25 10:00 10/21/25 09:27 5 MG Midodrine 10 mg TID@0600,1200,1800 PO 10/20/25 22:30 10/21/25 06:17 10 MG Laboratory Results Laboratory Tests 10/20/25 06:39 Coagulation Test 10/20/25 11:39 Prothrombin Time 11.6 sec (9.3-11.8) Prothrombin Time Diluted Pending Dilute PT Confirmation Ratio Pending Prothrombin Time INR 1.11 (0.9-1.15) Thrombin Time Pending Dilute Javier Viper Venom (Lupus) Pending Lupus Anticoagulant Interpretation Pending Urinalysis Test 10/19/25 07:30 Urine Color Light-yellow (Yellow) Urine Clarity Turbid (Clear) H Urine pH 5.5 (5.0-9.0) Urine Specific [place] 1.014 (1.001-1.035) Urine Protein Negative (Negative) Urine Ketones Negative (Negative) Urine Blood 1+ /uL (Negative) H Urine Nitrite Negative (Negative) Urine Bilirubin Negative (Negative) Urine Urobilinogen Normal mg/dL (Negative) Urine Leukocyte Esterase 3+ /uL (Negative) Urine RBC 6 /hpf (0 - 3) Urine Microscopic WBC 78 /HPF (0-3) H Urine Squamous Epithelial Cells Few /hpf (<5) Urine Bacteria Few /hpf (None Seen) H Urine Creatinine 40.34 mg/dL (30.0-125.0) Urine Protein/Creatinine Ratio 0.54 Urine Sodium 90 mmol/L (40-220) Urine Glucose Normal mg/dL (Normal) Urine Total Protein 21.6 mg/dL (1-14) H Labs and/or images reviewed: Labs reviewed by me, Image(s) reviewed by me Assessment/Plan Assessment/Plan acute kidney injury- secondary to dehydration-improved per labs yesterday mild chf from fluids dc fluids/add lasix small dose-- improved and at baseine today associated obstructive uropathy- [facility] 2023 bph resume home meds/check bladder scan await above results thrombocytopenia-consult hematology oncology/explained to patient if does not get to see blood specialist here/see as op fluid blisters/ulcers from broken blisters lower extremities from fluid retention- wound care Plan discussed with: Patient My Orders Orders - CHRISTELLE FALK MD Procedure Category Date Status Time * Urology Consult CONS 10/20/25 Transmitted 10:45 Finasteride Tablet PHA 10/21/25 In Process (Proscar Tablet) 10:00 Bladder Scan ORDERS 10/20/25 Transmitted 11:13 Lupus Anticoagulant LAB 10/20/25 In Process Comp 11:22 Vitamin B12 LAB 10/20/25 In Process 11:22 Tamsulosin PHA 10/21/25 In Process Hydrochloride (Flomax) 18:00 Cleanse Wound With CANDIDA 10/20/25 In Process Wound Clean 11:42 * Dietary Consult CONS 10/20/25 Transmitted 14:38 Complete Blood Count LAB 10/22/25 Verified 04:00 Basic Metabolic Panel LAB 10/22/25 Verified 04:00 Date of Service: Oct 21, 2025 Billing Provider: CHRISTELLE FALK MD Common Visit Codes: [id number] INP/OBS CARE(MOD) CHRISTELLE FALK MD Oct 21, 2025 10:13
--- NOTE | 2025-10-21 10:44 | DVHPN2 ---
Progress Note Date Seen: Oct 21, 2025 Medical Necessity Reason Pt with a Central, PICC or Fol: No Subjective Patient reports: No new complaints Other Systems: Patient seen and examined by myself today in follow-up Objective vital signs Vital Sign Date Time Temp Pulse Resp B/P (MAP) Pulse Ox O2 Delivery O2 Flow Rate FiO2 10/21/25 09:00 97.1 67 17 102/54 (70) 100 97.1 10/20/25 20:00 Nasal Cannula* 3 32 Total Intake and Output 10/20/25 10/20/25 10/21/25 15:00 23:00 07:00 Intake Total 820 ml 600 ml Output Total 800 ml Balance 820 ml -200 ml medications Current Medications Medications Dose Ordered Sig/Jhon Route Start Time Stop Time Status Last Admin Dose Admin Docusate Sodium 100 mg BIDPRN PRN PO 10/19/25 09:30 Bumetanide 1 mg BIDD IV 10/20/25 18:00 10/20/25 18:51 1 MG Tamsulosin HCl 0.4 mg QPM PO 10/21/25 18:00 Finasteride 5 mg DAILY PO 10/21/25 10:00 10/21/25 09:27 5 MG Midodrine 10 mg TID@0600,1200,1800 PO 10/20/25 22:30 10/21/25 06:17 10 MG Examination: LUNGS:Normal, CVS:Normal, MSK:Normal laboratory and microbiology Laboratory Tests 10/20/25 06:39 Test 10/20/25 06:39 Range/Units Serum Glucose 69 L 74-106 mg/dL Problem List/Assessment/Plan Problem List/Assessment/Plan Acute kidney injury superimposed Chronic Kidney Disease secondary hemodynamic mediated, FeNa > 2% Moderate to severe left hydronephrosis Nephrolithiasis Hyperkalemia Metabolic acidosis Hypoalbuminemia Chronic kidney disease Hyperuricemia Hypotension Anemia of chronic kidney disease Recommendations Kidney function slowly improving Increased urine output Hyperkalemia resolved Strict I&Os DC IV fluid Midodrine 10 mg p.o. t.i.d. Albumin 25% IV piggyback Urology consult We will continue to follow up Plan discussed with: Patient My Orders My Orders Orders - YECENIA MINA MD Procedure Category Date Status Time Bumetanide Injection PHA 10/20/25 In Process (Bumex Injection) 18:00 YECENIA MINA MD Oct 21, 2025 10:43
--- NOTE | 2025-10-21 13:31 | ECG ---
[facility] Test Date: 2025-10-20 Test Time: 22:53:13 Pat Name: QI MACIAS Department: Respiratoy Room: 0222T A Gender: M Organizational Development Director: RENÉ : 1940 Requested By: BENNETT MENDOZA Order Number: [id number] Reading MD: Dipesh Ramirez Measurements Intervals [place] Rate: 119 P: 79 IN: 167 QRS: 80 QRSD: 108 T: 74 QT: 355 QTc: 500 Interpretive Statements Sinus tachycardia Multiform ventricular premature complexes Low voltage, extremity and precordial leads Electronically Signed On 10-25-2025 18:25:08 PST by Dipesh Ramirez Please click the below link to view image of tracing.
[2025-10-21] MEDS: TAMSULOSIN HYDROCHLORIDE 0.4 MG CAP PO SCH (18:37)
[2025-10-22] VITALS (8 sets, daily range): BP systolic 85–147; BP diastolic 47–94; PULSE 51–136; RESP 17–20; TEMP 97–98; O2SAT 90–98
[2025-10-22 07:01] LABS: Hematocrit 31.4 % (41.0-53.0); Hemoglobin 10.2 g/dL (13.5-17.5); Mean Corpuscular Hemoglobin 30.7 pg (28.0-32.0); Mean Corpuscular Volume 94.2 fL (80.0-100.0)
[2025-10-22 07:02] LABS: Anion Gap 4 (5-15); Carbon Dioxide 28 mmol/L (20-31); Potassium 5.0 mmol/L (3.5-5.1); Sodium 143 mmol/L (136-145)
[2025-10-22 07:08] LABS: BUN/Creatinine Ratio 34.3 (10.0-20.0)
[2025-10-22 07:10] LABS: Blood Urea Nitrogen 61 mg/dL (9-23); Calcium 8.1 mg/dL (8.7-10.4); Chloride 111 mmol/L (98-107); Glucose 113 mg/dL (74-106)
[2025-10-22 09:10] LABS: Total Cells Counted 100.0 (100)
[2025-10-22] MEDS: LIDOCAINE 2% JELLY 11ml (GLYDO) UR ONE (11:45)
--- NOTE | 2025-10-22 12:09 | DVHINCON2 ---
Date of service: Oct 22, 2025 Referring Physician hospitalist Reason for Consultation obstructive uropathy History of Present Illness History Source: Patient, RN Notes, MD Notes, Old Records Exam Limitations: No limitations HPI 85 yo male hx of bladder cancer (in remission per pt) last surveillance cysto was 09/2024 which was negative. Hx of BPH, HTN, and bilateral hip replacements. CT showed a 4 mm distal left ureteral stone with moderate hydro. Follow up renal US 10/19 demonstrated moderate left hydro with ureteral jt not visualized and significant PVR 550 mls. He was recently admitted at [facility] and had positive blood cultures (klebsiella Pneumoniae). Peak JEANETTE creatine was 3.4 and has improved to 1.78 today with fluids and abx. He remains afebrile and hemodynamically stable. platelets are in the low 60-70 k range consistent with sepsis associated thrombocytopenia. Normal PT/INR. A duran catheter has been ordered. Home Meds Reported Medications Tamsulosin Hcl (Tamsulosin Hcl) 0.4 Mg Cap, 1 CAP PO DAILY 10/19/25 Finasteride (Finasteride) 5 Mg Tab, 1 TAB PO DAILY 10/19/25 Metoprolol Succinate (Metoprolol Succinate Er) 50 Mg Tab, 1 TAB PO DAILY 10/19/25 Past Medical History Hemotology/Oncology: Cancer Infectious Disease: Other (sepsis) Renal/: UTI, Benign prostatic enlarg. Past Surgical History: Cystoscopy Patient Family History: Patient reports no known family medical history. H&P Exam Vital Signs Vital Signs Date Time Temp Pulse Resp B/P (MAP) Pulse Ox O2 Delivery O2 Flow Rate FiO2 10/22/25 09:00 97.4 70 17 107/54 (71) 94 97.4 10/22/25 08:00 Nasal Cannula* 2 28 Labs/Xrays [address] [address] Ph: [phone] DIAGNOSTIC IMAGING Diagnostic Imaging Report : [id number] Signed PATIENT: QI MACIAS ACCT: [id number] UNIT: [id number] : 1940 LOC: OVERFLOW ROOM / BED: [address] [place] [address] AGE / SEX: 85 / M ADM STATUS: ADM IN SERVICE 09 ORDERING PHYSICIAN: BENNETT MENDOZA DNP PROCEDURE(s): KIDUS - KIDNEY REASON: eval for acute on chronic jeanette ORDER NUMBER(s): [id number], ACCESSION NUMBER(s): [id number] CLINICAL HISTORY: eval for acute on chronic jeanette TECHNIQUE: Complete ultrasound exam of the kidneys and bladder was performed. COMPARISON: None FINDINGS: The right kidney has mildly increased echogenicity and measures 9.7 cm. There is no focal parenchymal abnormality or evidence for stone. There is mild pelvicaliectasis. The left kidney has increased echogenicity and measures 12.2 cm. There is no focal parenchymal abnormality or evidence for stone. There is moderate to severe hydronephrosis. The bladder contains a possible 10 mm stone. IMPRESSION: Echogenic kidneys, compatible medical renal disease. Moderate to severe left hydronephrosis. Mild right renal pelvicaliectasis. Possible 10 mm bladder stone. ATED BY: SUKUMAR MIGUEL MD DICTATED DATE/TIME: 10/19/25 1029 SIGNED BY: SUKUMAR MIGUEL MD SIGNED DATE/TIME: 10/19/25 1029 CC: Labs Test 10/22/25 06:30 10/20/25 11:39 10/20/25 06:39 10/19/25 13:37 Range/Units White Blood Count 3.4 #L 4.4-10.8 10^3/uL Red Blood Count 3.33 L 4.5-5.90 10^6/uL Hemoglobin 10.2 L 13.5-17.5 g/dL Hematocrit 31.4 L 41.0-53.0 % Mean Corpuscular Volume 94.2 80.0-100.0 fL Mean Corpuscular Hemoglobin 30.7 28.0-32.0 pg Mean Corpuscular Hemoglobin Concent 32.6 32.0-36.0 g/dL Red Cell Distribution Width 15.0 H 11.8-14.3 % Platelet Count 67 L 140-450 10^3/uL Mean Platelet Volume 10.2 6.9-10.8 fL Neutrophils (%) (Auto) 37.0-80.0 % Lymphocytes (%) (Auto) 10.0-50.0 % Monocytes (%) (Auto) 0.0-12.0 % Basophils (%) (Auto) 0.0-2.0 % Neutrophils # (Auto) 1.6-8.6 10 ^3/uL Lymphocytes # (Auto) 0.4-5.4 10 ^3/uL Monocytes # (Auto) 0-1.3 10 ^3/uL Differential Total Cells Counted 100.0 100 Neutrophils % (Manual) 59 37.0-80.0 Band Neutrophils % (Manual) 4 Lymphocytes % (Manual) 14 10.0-50.0 Monocytes % (Manual) 22 H 0-12 Eosinophils % (Manual) 1 0-7 Basophils % (Manual) 0 0.0-2.0 Metamyelocytes % (manual) 0 Myelocytes % (Manual) 0 Promyelocytes % (Manual) 0 Blast Cells % (Manual) 0 Reactive Lymphocytes 0 Platelet Estimate Decreased Sodium Level 143 136-145 mmol/L Potassium Level 5.0 3.5-5.1 mmol/L Chloride Level 111 H 98-107 mmol/L Carbon Dioxide Level 28 20-31 mmol/L Anion Gap 4 L 5-15 Blood Urea Nitrogen 61 #H 9-23 mg/dL Creatinine 1.78 H 0.700-1.30 mg/dL Glomerular Filtration Rate Calc 37 >90 mL/min BUN/Creatinine Ratio 34.3 H 10.0-20.0 Serum Glucose 113 H 74-106 mg/dL Calcium Level 8.1 L 8.7-10.4 mg/dL Prothrombin Time 11.6 9.3-11.8 sec Prothrombin Time INR 1.11 0.9-1.15 Lactate Dehydrogenase 280 H 120-246 U/L Vitamin B12 Level 2606 H 211-911 pg/mL Reticulocyte Count (auto) 0.99 0.5-1.5 % Total Bilirubin 0.7 0.2-1.0 mg/dL Aspartate Amino Transferase (AST) 19 13-40 U/L Alanine Aminotransferase (ALT) 20 7-40 U/L Alkaline Phosphatase 49 46-116 U/L Total Protein 3.8 L 5.7-8.2 g/dL Albumin 2.1 L 3.2-4.8 g/dL Hepatitis B Surface Antigen Negative Negative Hepatitis C Antibody Negative Negative Test 10/19/25 13:02 10/19/25 10:34 10/19/25 08:06 10/19/25 07:30 Range/Units Troponin I High Sensitivity 9 </=54 ng/L Uric Acid 12.6 H 3.7-9.2 mg/dL Phosphorus Level 6.7 H 2.4-5.1 mg/dL Magnesium Level 2.0 1.6-2.6 mg/dL Red Blood Cell Morphology Normal B-Type Natriuretic Peptide 47.48 0-100 pg/mL Urine Color Light-yellow Yellow Urine Clarity Turbid H Clear Urine pH 5.5 5.0-9.0 Urine Specific [place] 1.014 1.001-1.035 Urine Protein Negative Negative Urine Ketones Negative Negative Urine Blood 1+ H Negative /uL Urine Nitrite Negative Negative Urine Bilirubin Negative Negative Urine Urobilinogen Normal Negative mg/dL Urine Leukocyte Esterase 3+ Negative /uL Urine RBC 6 0 - 3 /hpf Urine Microscopic WBC 78 H 0-3 /HPF Urine Squamous Epithelial Cells Few <5 /hpf Urine Bacteria Few H None Seen /hpf Urine Creatinine 40.34 30.0-125.0 mg/dL Urine Protein/Creatinine Ratio 0.54 Urine Sodium 90 40-220 mmol/L Urine Glucose Normal Normal mg/dL Urine Total Protein 21.6 H 1-14 mg/dL Microbiology Date/Time Source Procedure Growth Status 10/20/25 03:30 Nose MRSA Screen - Final Complete Assessment/Plan Problem List: (1) History of bladder cancer (2) Ureteral stone with hydronephrosis (3) Retention of urine Plan duran catheter to gravity drainage monitor I&O daily BMP IV abx per primary stent vs nephrostomy if rising creatine, decline in urine output, fever or hemodynamic instability outpt cystoscopy for surveillance Plan discussed with: Patient, Other LEILA GARCÍA NP Oct 22, 2025 12:09
--- NOTE | 2025-10-22 13:03 | DVHPN2 ---
Progress Note Date Seen: Oct 22, 2025 Resident Creating Document: ZAY AUGUSTE RESIDENT Medical Necessity Reason Pt with a Central, PICC or Fol: No The following are medically ne: Rucker Catheter Subjective Patient reports: No new complaints, Feels better Objective vital signs Vital Sign Date Time Temp Pulse Resp B/P (MAP) Pulse Ox O2 Delivery O2 Flow Rate FiO2 10/22/25 09:00 97.4 70 17 107/54 (71) 94 97.4 10/22/25 08:00 Nasal Cannula* 2 28 Total Intake and Output 10/21/25 10/21/25 10/22/25 15:00 23:00 07:00 Intake Total 300 ml 1286 ml 800 ml Output Total 525 ml 600 ml Balance 300 ml 761 ml 200 ml medications Current Medications Medications Dose Ordered Sig/Jhon Route Start Time Stop Time Status Last Admin Dose Admin Docusate Sodium 100 mg BIDPRN PRN PO 10/19/25 09:30 Tamsulosin HCl 0.4 mg QPM PO 10/21/25 18:00 10/21/25 18:37 0.4 MG Finasteride 5 mg DAILY PO 10/21/25 10:00 10/22/25 09:57 5 MG Midodrine 10 mg TID@0600,1200,1800 PO 10/20/25 22:30 10/22/25 06:02 10 MG Examination General Appearance: Alert, Oriented X3, Cooperative, No acute distress HEENT: Atraumatic, PERRLA, EOMI, Mucous membr. moist/pink Respiratory: Clear to auscultation, Normal air movement Cardiovascular: Regular rate, Normal S1, Normal S2, No murmurs Abdominal: Normal bowel sounds, Soft, No tenderness, No hepatospenomegaly, Other (Perineum swelling) Extremities: Bilateral lower extremity with edema scattered blistering to bilateral lower extremity some scattered bruising no open wounds compartments soft neurovascular intact Skin: No rashes, No breakdown, No significant lesion Neuro: Other (Neuro nonfocal) Psych/Mental Status: Mental status NL, Mood NL laboratory and microbiology Laboratory Tests 10/22/25 06:30 Test 10/22/25 06:30 Range/Units Serum Glucose 113 H 74-106 mg/dL Microbiology Date/Time Source Procedure Growth Status 10/20/25 03:30 Nose MRSA Screen - Final Complete Labs and/or images reviewed: Labs reviewed by me, Image(s) reviewed by me Problem List/Assessment/Plan Problem List/Assessment/Plan Acute kidney injury superimposed Chronic Kidney Disease secondary hemodynamic mediated, FeNa > 2% Moderate to severe left hydronephrosis Nephrolithiasis Hyperkalemia Metabolic acidosis Hypoalbuminemia Chronic kidney disease Hyperuricemia Hypotension Anemia of chronic kidney disease Recommendations Kidney function slowly improving Increased urine output Hyperkalemia resolved Strict I&Os DC IV fluid Midodrine 10 mg p.o. t.i.d. Albumin 25% IV piggyback Urology consult We will continue to follow up Case discussed with the Dr. Gonzalez Plan discussed with: Patient Dietary Evaluation Review Comments: Monitor PO intake, lab values, weight trend, and I/O Expected Outcomes/Goals: Intake to meet >75% estimated needs Lab values to improve FU 3-5 days ZAY AUGUSTE RESIDENT Oct 22, 2025 13:03
--- NOTE | 2025-10-22 15:56 | DVHPN2 ---
Subjective feeling well in bed Reviewed: H&P Changes from previous H/P or p: No Changes Eyes: No Pain, No Vision change, No Conjunctivae inflammation, No Eyelid inflammation, No Other, No Redness ENT: No Ear pain, No Ear discharge, No Nose pain, No Nose discharge, No Nose congestion, No Mouth pain, No Mouth swelling, No Throat pain, No Throat swelling, No Other Cardiovascular: No Chest Pain, No Palpitations, No Orthopnea, No Paroxysmal Noc. Dyspnea, No Edema, No Lt Headedness, No Other Respiratory: No Cough, No Dry, No Shortness of breath, No SOB with excertion, No Wheezing, No Hemoptysis, No Pleuritic Pain, No Sputum, No Other Gastrointestinal: No Nausea, No Vomiting, No Abdominal Pain; Diarrhea; No Constipation, No Melena, No Hematochezia, No Other Genitourinary: No Dysuria, No Frequency, No Incontinence, No Hematuria, No Retention, No Other Musculoskeletal: No other, No neck pain, No shoulder pain, No arm pain, No back pain, No hand pain; leg pain; No foot pain Skin: No Rash, No Lesions, No Jaundice, No Bruising; Other (Altered blistering to bilateral lower extremities no erythema is mild bruising also noted and bilateral lower extremity edema) Objective Vitals Vital Signs Date Time Temp Pulse Resp B/P (MAP) Pulse Ox O2 Delivery O2 Flow Rate FiO2 10/22/25 13:14 97.0 81 17 108/67 (81) 98 97.0 10/22/25 08:00 Nasal Cannula* 2 28 Intake/Output Intake and Output 10/22/25 05:00 Intake Total 2386 ml Output Total 1125 ml Balance 1261 ml Intake Oral 2386 ml Output Urine Total 1125 ml # Bowel Movements 3 General Appearance: Oriented X3, Cooperative, No acute distress Lungs: Clear to auscultation Cardiovascular: Regular rate, Normal S1, Normal S2 Musculoskeletal: Normal sensory function, Normal motor function Neuro: Normal gait, Normal speech, Strength at 5/5 X4 ext, Sensation intact Psych/Mental Status: Mental status NL, Mood NL Medications Current Medications Medications Dose Ordered Sig/Jhon Route Start Time Stop Time Status Last Admin Dose Admin Docusate Sodium 100 mg BIDPRN PRN PO 10/19/25 09:30 Tamsulosin HCl 0.4 mg QPM PO 10/21/25 18:00 12/7/25 18:37 0.4 MG Finasteride 5 mg DAILY PO 10/21/25 10:00 10/22/25 09:57 5 MG Midodrine 10 mg TID@0600,1200,1800 PO 10/20/25 22:30 10/22/25 14:45 10 MG Laboratory Results Laboratory Tests 10/22/25 06:30 Chemistry Test 10/22/25 06:30 Calcium Level 8.1 mg/dL (8.7-10.4) L Urinalysis Test 10/19/25 07:30 Urine Color Light-yellow (Yellow) Urine Clarity Turbid (Clear) H Urine pH 5.5 (5.0-9.0) Urine Specific [place] 1.014 (1.001-1.035) Urine Protein Negative (Negative) Urine Ketones Negative (Negative) Urine Blood 1+ /uL (Negative) H Urine Nitrite Negative (Negative) Urine Bilirubin Negative (Negative) Urine Urobilinogen Normal mg/dL (Negative) Urine Leukocyte Esterase 3+ /uL (Negative) Urine RBC 6 /hpf (0 - 3) Urine Microscopic WBC 78 /HPF (0-3) H Urine Squamous Epithelial Cells Few /hpf (<5) Urine Bacteria Few /hpf (None Seen) H Urine Creatinine 40.34 mg/dL (30.0-125.0) Urine Protein/Creatinine Ratio 0.54 Urine Sodium 90 mmol/L (40-220) Urine Glucose Normal mg/dL (Normal) Urine Total Protein 21.6 mg/dL (1-14) H Microbiology Microbiology Date/Time Source Procedure Growth Status 10/20/25 03:30 Nose MRSA Screen - Final Complete Assessment/Plan Assessment/Plan acute kidney injury- secondary to dehydration-improved per labs yesterday mild chf from fluids dc fluids/add lasix small dose-- improved and at baseine today associated obstructive uropathy- [facility] 2023 bph resume home meds/check bladder scan await above results thrombocytopenia-consult hematology oncology/explained to patient if does not get to see blood specialist here/see as op fluid blisters/ulcers from broken blisters lower extremities from fluid retention- wound care Plan discussed with: Patient Date of Service: Oct 22, 2025 Billing Provider: SANDRA LERNER MD Common Visit Codes: [id number] INP/OBS CARE(HIGH) SANDRA LERNER MD Oct 22, 2025 15:56
--- NOTE | 2025-10-22 21:02 | ECG ---
[facility] Test Date: 2025-10-22 Test Time: 20:42:15 Pat Name: QI MACIAS Department: Respiratoy Room: 0222T A Gender: M Machine I Coremaker: : 1940 Requested By: RUFINA WADSWORTH Order Number: [id number] Reading MD: Dipesh Ramirez Measurements Intervals [place] Rate: 142 P: 0 HI: 0 QRS: 45 QRSD: 100 T: 42 QT: 313 QTc: 481 Interpretive Statements Atrial fibrillation with rapid V-rate Low voltage, extremity and precordial leads Electronically Signed On 10-25-2025 18:26:13 PST by Dipesh Ramirez Please click the below link to view image of tracing.
[2025-10-22] MEDS: AMIODARONE BOLUS KIT 100 ML IV ONE (21:32)
[2025-10-23] VITALS (8 sets, daily range): BP systolic 88–115; BP diastolic 47–64; PULSE 67–94; RESP 16–20; TEMP 97–97.9; O2SAT 92–98
--- NOTE | 2025-10-23 10:21 | DVHPN2 ---
Progress Note - Dictate Date Seen: Oct 23, 2025 Medical Necessity Reason Pt with a Central, PICC or Fol: No The following are medically ne: Rucker Catheter Subjective Patient awake and alert this morning. States that his friend brought him the snacks/ potato chips at bedside. vital signs Vital Sign Date Time Temp Pulse Resp B/P (MAP) Pulse Ox O2 Delivery O2 Flow Rate FiO2 10/23/25 09:13 97.9 73 16 88/47 (61) 97 97.9 10/23/25 08:00 Nasal Cannula* 2 28 Total Intake and Output 10/22/25 10/22/25 10/23/25 15:00 23:00 07:00 Intake Total 925 ml 350 ml Output Total 1500 ml 400 ml Balance -575 ml -50 ml medications Current Medications Medications Dose Ordered Sig/Jhon Route Start Time Stop Time Status Last Admin Dose Admin Docusate Sodium 100 mg BIDPRN PRN PO 10/19/25 09:30 Tamsulosin HCl 0.4 mg QPM PO 10/21/25 18:00 10/22/25 17:55 0.4 MG Finasteride 5 mg DAILY PO 10/21/25 10:00 10/22/25 09:57 5 MG Midodrine 10 mg TID@0600,1200,1800 PO 10/20/25 22:30 10/23/25 06:07 10 MG Amiodarone HCl 250 ml @ 16.66 mls/ hr Q15H1M IV 10/23/25 03:30 10/23/25 06:07 16.66 MLS/HR objective Gen: nad heent: nc/at, mmm lungs: cta anteriorly cvs: no rub abd: soft, bowel sounds audible ext: ++ edema laboratory and microbiology Laboratory Tests 10/22/25 06:30 Test 10/22/25 06:30 Range/Units Serum Glucose 113 H 74-106 mg/dL Assessment/Plan IMP: Acute kidney injury superimposed Chronic Kidney Disease secondary hemodynamic mediated, FeNa > 2% Moderate to severe left hydronephrosis Nephrolithiasis Hyperkalemia Metabolic acidosis Hypoalbuminemia Chronic kidney disease Hyperuricemia Hypotension Anemia of chronic kidney disease Recommendations - GFR improving, we will repeat basic chemistry panel in a.m. - loop diuretic as needed Dietary Evaluation Review Comments: Monitor PO intake, lab values, weight trend, and I/O Expected Outcomes/Goals: Intake to meet >75% estimated needs Lab values to improve FU 3-5 days Plan discussed with: Patient YUE GARCIA MD Oct 23, 2025 10:21
[2025-10-23] MEDS: BUMETANIDE 2.5mg/10ml (0.25 mg/ml) INJ IV ONE (10:30)
[2025-10-23 10:50] LABS: Potassium 4.9 mmol/L (3.5-5.1); Sodium 140 mmol/L (136-145)
[2025-10-23 10:52] LABS: Anion Gap 6 (5-15); Carbon Dioxide 26 mmol/L (20-31)
[2025-10-23 10:57] LABS: BUN/Creatinine Ratio 31.3 (10.0-20.0); Blood Urea Nitrogen 52 mg/dL (9-23); Calcium 8.0 mg/dL (8.7-10.4); Chloride 108 mmol/L (98-107); Glucose 164 mg/dL (74-106)
--- NOTE | 2025-10-23 12:15 | DVHPN2 ---
Subjective feeling well in bed Reviewed: H&P Changes from previous H/P or p: No Changes Eyes: No Pain, No Vision change, No Conjunctivae inflammation, No Eyelid inflammation, No Other, No Redness ENT: No Ear pain, No Ear discharge, No Nose pain, No Nose discharge, No Nose congestion, No Mouth pain, No Mouth swelling, No Throat pain, No Throat swelling, No Other Cardiovascular: No Chest Pain, No Palpitations, No Orthopnea, No Paroxysmal Noc. Dyspnea, No Edema, No Lt Headedness, No Other Respiratory: No Cough, No Dry, No Shortness of breath, No SOB with excertion, No Wheezing, No Hemoptysis, No Pleuritic Pain, No Sputum, No Other Gastrointestinal: No Nausea, No Vomiting, No Abdominal Pain; Diarrhea; No Constipation, No Melena, No Hematochezia, No Other Genitourinary: No Dysuria, No Frequency, No Incontinence, No Hematuria, No Retention, No Other Musculoskeletal: No other, No neck pain, No shoulder pain, No arm pain, No back pain, No hand pain; leg pain; No foot pain Skin: No Rash, No Lesions, No Jaundice, No Bruising; Other (Altered blistering to bilateral lower extremities no erythema is mild bruising also noted and bilateral lower extremity edema) Objective Vitals Vital Signs Date Time Temp Pulse Resp B/P (MAP) Pulse Ox O2 Delivery O2 Flow Rate FiO2 10/23/25 09:13 97.9 73 16 88/47 (61) 97 97.9 10/23/25 08:00 Nasal Cannula* 2 28 Intake/Output Intake and Output 10/23/25 07:00 Intake Total 1275 ml Output Total 1900 ml Balance -625 ml Intake Oral 925 ml IV Total 350 ml Output Urine Total 1900 ml # Bowel Movements 1 General Appearance: Oriented X3, Cooperative, No acute distress Lungs: Clear to auscultation Cardiovascular: Regular rate, Normal S1, Normal S2 Musculoskeletal: Normal sensory function, Normal motor function Neuro: Normal gait, Normal speech, Strength at 5/5 X4 ext, Sensation intact Psych/Mental Status: Mental status NL, Mood NL Medications Current Medications Medications Dose Ordered Sig/Jhon Route Start Time Stop Time Status Last Admin Dose Admin Docusate Sodium 100 mg BIDPRN PRN PO 10/19/25 09:30 Tamsulosin HCl 0.4 mg QPM PO 10/21/25 18:00 10/22/25 17:55 0.4 MG Finasteride 5 mg DAILY PO 10/21/25 10:00 10/22/25 09:57 5 MG Midodrine 10 mg TID@0600,1200,1800 PO 10/20/25 22:30 10/23/25 11:53 10 MG Amiodarone HCl 250 ml @ 16.66 mls/ hr Q15H1M IV 10/23/25 03:30 10/23/25 06:07 16.66 MLS/HR Laboratory Results Laboratory Tests 10/22/25 06:30 10/23/25 09:53 Chemistry Test 10/23/25 09:53 Calcium Level 8.0 mg/dL (8.7-10.4) L Urinalysis Test 10/19/25 07:30 Urine Color Light-yellow (Yellow) Urine Clarity Turbid (Clear) H Urine pH 5.5 (5.0-9.0) Urine Specific [place] 1.014 (1.001-1.035) Urine Protein Negative (Negative) Urine Ketones Negative (Negative) Urine Blood 1+ /uL (Negative) H Urine Nitrite Negative (Negative) Urine Bilirubin Negative (Negative) Urine Urobilinogen Normal mg/dL (Negative) Urine Leukocyte Esterase 3+ /uL (Negative) Urine RBC 6 /hpf (0 - 3) Urine Microscopic WBC 78 /HPF (0-3) H Urine Squamous Epithelial Cells Few /hpf (<5) Urine Bacteria Few /hpf (None Seen) H Urine Creatinine 40.34 mg/dL (30.0-125.0) Urine Protein/Creatinine Ratio 0.54 Urine Sodium 90 mmol/L (40-220) Urine Glucose Normal mg/dL (Normal) Urine Total Protein 21.6 mg/dL (1-14) H Microbiology Microbiology Date/Time Source Procedure Growth Status 10/20/25 03:30 Nose MRSA Screen - Final Complete Assessment/Plan Assessment/Plan acute kidney injury- secondary to dehydration-improved per labs yesterday mild chf from fluids dc fluids/add lasix small dose-- improved and at baseine today associated obstructive uropathy- [facility]ST[facility] 2023 Creat 3.01>1.6 bph resume home meds/check bladder scan await above results thrombocytopenia-consult hematology oncology/explained to patient if does not get to see blood specialist here/see as op fluid blisters/ulcers from broken blisters lower extremities from fluid retention- wound care Plan discussed with: Patient Date of Service: Oct 23, 2025 Billing Provider: SANDRA LERNER MD Common Visit Codes: [id number] INP/OBS CARE(HIGH) SANDRA LERNER MD Oct 23, 2025 12:14
[2025-10-24] VITALS (9 sets, daily range): BP systolic 97–143; BP diastolic 58–67; PULSE 76–86; RESP 17–20; TEMP 97.4–97.7; O2SAT 90–99
[2025-10-24 06:49] LABS: Anion Gap 4 (5-15); Carbon Dioxide 28 mmol/L (20-31); Sodium 140 mmol/L (136-145)
[2025-10-24 06:53] LABS: Calcium 8.2 mg/dL (8.7-10.4); Chloride 108 mmol/L (98-107); Potassium 5.3 mmol/L (3.5-5.1)
[2025-10-24 06:55] LABS: BUN/Creatinine Ratio 26.1 (10.0-20.0); Blood Urea Nitrogen 43 mg/dL (9-23); Glucose 97 mg/dL (74-106)
[2025-10-24] MEDS: METOPROLOL SUCCINATE XL 50 MG TAB PO SCH (15:27)
--- NOTE | 2025-10-24 15:41 | DVHPN2 ---
Progress Note Date Seen: Oct 24, 2025 Resident Creating Document: ZAY AUGUSTE RESIDENT Medical Necessity Reason Pt with a Central, PICC or Fol: No The following are medically ne: Rucker Catheter Subjective Review of Systems Patient seen and examined at the bedside. Patient reported new complaints at this time. Rest of ROS negative. Objective vital signs Vital Sign Date Time Temp Pulse Resp B/P (MAP) Pulse Ox O2 Delivery O2 Flow Rate FiO2 10/24/25 15:27 79 144/77 10/24/25 13:00 97.5 17 99 97.5 10/24/25 07:30 Room Air* 0 21 Total Intake and Output 10/23/25 10/23/25 10/24/25 15:00 23:00 07:00 Intake Total 600 ml 517 ml Output Total 190 ml 400 ml Balance 410 ml 117 ml medications Current Medications Medications Dose Ordered Sig/Jhon Route Start Time Stop Time Status Last Admin Dose Admin Docusate Sodium 100 mg BIDPRN PRN PO 10/19/25 09:30 Tamsulosin HCl 0.4 mg QPM PO 10/21/25 18:00 10/23/25 18:40 0.4 MG Finasteride 5 mg DAILY PO 10/21/25 10:00 10/24/25 10:00 5 MG Midodrine 10 mg TID@0600,1200,1800 PO 10/20/25 22:30 10/24/25 12:00 10 MG Metoprolol Succinate 50 mg DAILY PO 10/24/25 13:45 10/24/25 15:27 50 MG Examination General Appearance: Alert, Oriented X3, Cooperative, No acute distress HEENT: Atraumatic, PERRLA, EOMI, Mucous membr. moist/pink Respiratory: Clear to auscultation, Normal air movement Cardiovascular: Regular rate, Normal S1, Normal S2, No murmurs Abdominal: Normal bowel sounds, Soft, No tenderness, No hepatospenomegaly, Other (Perineum swelling) Extremities: Bilateral lower extremity with edema scattered blistering to bilateral lower extremity some scattered bruising no open wounds compartments soft neurovascular intact Skin: No rashes, No breakdown, No significant lesion Neuro: Other (Neuro nonfocal) Psych/Mental Status: Mental status NL, Mood NL laboratory and microbiology Laboratory Tests 10/24/25 06:01 10/22/25 06:30 Test 10/24/25 06:01 Range/Units Serum Glucose 97 74-106 mg/dL Microbiology Date/Time Source Procedure Growth Status 10/20/25 03:30 Nose MRSA Screen - Final Complete Labs and/or images reviewed: Labs reviewed by me, Image(s) reviewed by me Problem List/Assessment/Plan Problem List/Assessment/Plan Acute kidney injury superimposed Chronic Kidney Disease secondary hemodynamic mediated, FeNa > 2% Moderate to severe left hydronephrosis Nephrolithiasis Hyperkalemia Metabolic acidosis Hypoalbuminemia Chronic kidney disease Hyperuricemia Hypotension Anemia of chronic kidney disease Recommendations - GFR improving, we will repeat basic chemistry panel in a.m. and looks stable function - loop diuretic as needed Kidney function slowly improving Increased urine output Hyperkalemia resolved Strict I&Os Midodrine 10 mg p.o. t.i.d. Albumin 25% IV piggyback We will continue to follow up Case discussed with the Dr. Gonzalez Plan discussed with: Patient Dietary Evaluation Review Comments: Monitor PO intake, lab values, weight trend, and I/O Expected Outcomes/Goals: Intake to meet >75% estimated needs Lab values to improve FU 3-5 days ZAY AUGUSTE RESIDENT Oct 24, 2025 15:41
--- NOTE | 2025-10-24 17:27 | DVHPN2 ---
Subjective feeling well in bed Reviewed: H&P Changes from previous H/P or p: No Changes Eyes: No Pain, No Vision change, No Conjunctivae inflammation, No Eyelid inflammation, No Other, No Redness ENT: No Ear pain, No Ear discharge, No Nose pain, No Nose discharge, No Nose congestion, No Mouth pain, No Mouth swelling, No Throat pain, No Throat swelling, No Other Cardiovascular: No Chest Pain, No Palpitations, No Orthopnea, No Paroxysmal Noc. Dyspnea, No Edema, No Lt Headedness, No Other Respiratory: No Cough, No Dry, No Shortness of breath, No SOB with excertion, No Wheezing, No Hemoptysis, No Pleuritic Pain, No Sputum, No Other Gastrointestinal: Diarrhea Genitourinary: No Dysuria, No Frequency, No Incontinence, No Hematuria, No Retention, No Other Musculoskeletal: leg pain Skin: Other Objective Vitals Vital Signs Date Time Temp Pulse Resp B/P (MAP) Pulse Ox O2 Delivery O2 Flow Rate FiO2 10/24/25 16:55 97.7 82 19 143/63 (89) 99 97.7 10/24/25 07:30 Room Air* 0 21 Intake/Output Intake and Output 10/24/25 05:00 Intake Total 1367 ml Output Total 590 ml Balance 777 ml Intake Oral 1117 ml IV Total 250 ml Output Urine Total 590 ml # Voids 3 General Appearance: Oriented X3, Cooperative, No acute distress Lungs: Clear to auscultation Cardiovascular: Regular rate, Normal S1, Normal S2 Musculoskeletal: Normal sensory function, Normal motor function Neuro: Normal gait, Normal speech, Strength at 5/5 X4 ext, Sensation intact Psych/Mental Status: Mental status NL, Mood NL Medications Current Medications Medications Dose Ordered Sig/Jhon Route Start Time Stop Time Status Last Admin Dose Admin Docusate Sodium 100 mg BIDPRN PRN PO 10/19/25 09:30 Tamsulosin HCl 0.4 mg QPM PO 10/21/25 18:00 10/23/25 18:40 0.4 MG Finasteride 5 mg DAILY PO 10/21/25 10:00 10/24/25 10:00 5 MG Midodrine 10 mg TID@0600,1200,1800 PO 10/20/25 22:30 10/24/25 12:00 10 MG Metoprolol Succinate 50 mg DAILY PO 10/24/25 13:45 10/24/25 15:27 50 MG Laboratory Results Laboratory Tests 10/22/25 06:30 10/24/25 06:01 Chemistry Test 10/24/25 06:01 Calcium Level 8.2 mg/dL (8.7-10.4) L Urinalysis Test 10/19/25 07:30 Urine Color Light-yellow (Yellow) Urine Clarity Turbid (Clear) H Urine pH 5.5 (5.0-9.0) Urine Specific [place] 1.014 (1.001-1.035) Urine Protein Negative (Negative) Urine Ketones Negative (Negative) Urine Blood 1+ /uL (Negative) H Urine Nitrite Negative (Negative) Urine Bilirubin Negative (Negative) Urine Urobilinogen Normal mg/dL (Negative) Urine Leukocyte Esterase 3+ /uL (Negative) Urine RBC 6 /hpf (0 - 3) Urine Microscopic WBC 78 /HPF (0-3) H Urine Squamous Epithelial Cells Few /hpf (<5) Urine Bacteria Few /hpf (None Seen) H Urine Creatinine 40.34 mg/dL (30.0-125.0) Urine Protein/Creatinine Ratio 0.54 Urine Sodium 90 mmol/L (40-220) Urine Glucose Normal mg/dL (Normal) Urine Total Protein 21.6 mg/dL (1-14) H Microbiology Microbiology Date/Time Source Procedure Growth Status 10/20/25 03:30 Nose MRSA Screen - Final Complete Assessment/Plan Assessment/Plan acute kidney injury- secondary to dehydration-improved per labs yesterday mild chf from fluids dc fluids/add lasix small dose-- improved and at baseine today associated obstructive uropathy- [facility] 2023 Creat 3.01>1.6>1.6 bph resume home meds/check bladder scan await above results thrombocytopenia-consult hematology oncology/explained to patient if does not get to see blood specialist here/see as op fluid blisters/ulcers from broken blisters lower extremities from fluid retention- wound care Plan discussed with: Patient My Orders Orders - SANDRA LERNER MD Procedure Category Date Status Time Metoprolol Xl PHA 10/24/25 In Process Succinate (Toprol Xl) 13:45 Date of Service: Oct 24, 2025 Billing Provider: SANDRA LERNER MD Common Visit Codes: [id number] INP/OBS CARE(HIGH) SANDRA LERNER MD Oct 24, 2025 17:27
[2025-10-25] VITALS (8 sets, daily range): BP systolic 91–123; BP diastolic 51–87; PULSE 70–83; RESP 16–20; TEMP 96.8–97.7; O2SAT 91–98
[2025-10-25 10:42] LABS: Carbon Dioxide 26 mmol/L (20-31); Potassium 4.9 mmol/L (3.5-5.1); Sodium 142 mmol/L (136-145)
[2025-10-25 10:48] LABS: Chloride 109 mmol/L (98-107)
[2025-10-25 10:49] LABS: Anion Gap 7 (5-15); BUN/Creatinine Ratio 16.9 (10.0-20.0); Blood Urea Nitrogen 28 mg/dL (9-23); Calcium 8.1 mg/dL (8.7-10.4); Glucose 126 mg/dL (74-106)
--- NOTE | 2025-10-25 11:45 | DVHPN2 ---
Progress Note Date Seen: Oct 25, 2025 Resident Creating Document: ZAY AUGUSTE RESIDENT Medical Necessity Reason Pt with a Central, PICC or Fol: No The following are medically ne: Rucker Catheter Subjective Patient reports: No new complaints, Feels better Objective vital signs Vital Sign Date Time Temp Pulse Resp B/P (MAP) Pulse Ox O2 Delivery O2 Flow Rate FiO2 10/25/25 08:26 96.8 75 20 91/55 (67) 98 96.8 10/25/25 07:30 Room Air* 0 21 Total Intake and Output 10/24/25 10/24/25 10/25/25 15:00 23:00 07:00 Intake Total 250 ml 550 ml 440 ml Output Total 600 ml 875 ml Balance 250 ml -50 ml -435 ml medications Current Medications Medications Dose Ordered Sig/Jhon Route Start Time Stop Time Status Last Admin Dose Admin Docusate Sodium 100 mg BIDPRN PRN PO 10/19/25 09:30 Tamsulosin HCl 0.4 mg QPM PO 10/21/25 18:00 10/24/25 17:29 0.4 MG Finasteride 5 mg DAILY PO 10/21/25 10:00 10/24/25 10:00 5 MG Midodrine 10 mg TID@0600,1200,1800 PO 10/20/25 22:30 10/25/25 05:23 10 MG Metoprolol Succinate 50 mg DAILY PO 10/24/25 13:45 10/24/25 15:27 50 MG Examination General Appearance: Alert, Oriented X3, Cooperative, No acute distress HEENT: Atraumatic, PERRLA, EOMI, Mucous membr. moist/pink Respiratory: Clear to auscultation, Normal air movement Cardiovascular: Regular rate, Normal S1, Normal S2, No murmurs Abdominal: Normal bowel sounds, Soft, No tenderness, No hepatospenomegaly, Other (Perineum swelling) Extremities: Bilateral lower extremity with edema scattered blistering to bilateral lower extremity some scattered bruising no open wounds compartments soft neurovascular intact Skin: No rashes, No breakdown, No significant lesion Neuro: Other (Neuro nonfocal) Psych/Mental Status: Mental status NL, Mood NL laboratory and microbiology Laboratory Tests 10/25/25 09:50 10/22/25 06:30 Test 10/25/25 09:50 Range/Units Serum Glucose 126 H 74-106 mg/dL Microbiology Date/Time Source Procedure Growth Status 10/20/25 03:30 Nose MRSA Screen - Final Complete Labs and/or images reviewed: Labs reviewed by me, Image(s) reviewed by me Problem List/Assessment/Plan Problem List/Assessment/Plan Acute kidney injury superimposed Chronic Kidney Disease secondary hemodynamic mediated, FeNa > 2% Moderate to severe left hydronephrosis Nephrolithiasis Hyperkalemia Metabolic acidosis Hypoalbuminemia Chronic kidney disease Hyperuricemia Hypotension Anemia of chronic kidney disease Recommendations - GFR improving, we will repeat basic chemistry panel in a.m. and looks stable function - loop diuretic as needed Kidney function slowly improving Increased urine output Hyperkalemia resolved Strict I&Os Midodrine 10 mg p.o. t.i.d. Albumin 25% IV piggyback We will continue to follow up Case discussed with the Dr. Gonzalez. We will signoff this patient. Thank you for consulting us please call for any queries. Plan discussed with: Patient Dietary Evaluation Review Comments: Monitor PO intake, lab values, weight trend, and I/O Expected Outcomes/Goals: Intake to meet >75% estimated needs Lab values to improve FU 3-5 days ZAY AUGUSTE RESIDENT Oct 25, 2025 11:45
--- NOTE | 2025-10-25 12:36 | ECG ---
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
--- NOTE | 2025-10-25 12:36 | ECG ---
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
[2025-10-25 13:07] LABS: PTT-LA 42.8 sec (0.0-43.5)
--- NOTE | 2025-10-25 13:24 | DVHPN2 ---
Subjective feeling well in bed Reviewed: H&P Changes from previous H/P or p: No Changes Eyes: No Pain, No Vision change, No Conjunctivae inflammation, No Eyelid inflammation, No Other, No Redness ENT: No Ear pain, No Ear discharge, No Nose pain, No Nose discharge, No Nose congestion, No Mouth pain, No Mouth swelling, No Throat pain, No Throat swelling, No Other Cardiovascular: No Chest Pain, No Palpitations, No Orthopnea, No Paroxysmal Noc. Dyspnea, No Edema, No Lt Headedness, No Other Respiratory: No Cough, No Dry, No Shortness of breath, No SOB with excertion, No Wheezing, No Hemoptysis, No Pleuritic Pain, No Sputum, No Other Gastrointestinal: Diarrhea Genitourinary: No Dysuria, No Frequency, No Incontinence, No Hematuria, No Retention, No Other Musculoskeletal: leg pain Skin: Other Objective Vitals Vital Signs Date Time Temp Pulse Resp B/P (MAP) Pulse Ox O2 Delivery O2 Flow Rate FiO2 10/25/25 11:16 75 91/55 10/25/25 08:26 96.8 20 98 96.8 10/25/25 07:30 Room Air* 0 21 Intake/Output Intake and Output 10/25/25 06:59 Intake Total 1240 ml Output Total 1475 ml Balance -235 ml Intake Oral 740 ml IV Total 500 ml Output Urine Total 1475 ml # Bowel Movements 3 General Appearance: Oriented X3, Cooperative, No acute distress Lungs: Clear to auscultation Cardiovascular: Regular rate, Normal S1, Normal S2 Musculoskeletal: Normal sensory function, Normal motor function Neuro: Normal gait, Normal speech, Strength at 5/5 X4 ext, Sensation intact Psych/Mental Status: Mental status NL, Mood NL Medications Current Medications Medications Dose Ordered Sig/Jhon Route Start Time Stop Time Status Last Admin Dose Admin Docusate Sodium 100 mg BIDPRN PRN PO 10/19/25 09:30 Tamsulosin HCl 0.4 mg QPM PO 10/21/25 18:00 10/24/25 17:29 0.4 MG Finasteride 5 mg DAILY PO 10/21/25 10:00 10/25/25 11:16 5 MG Midodrine 10 mg TID@0600,1200,1800 PO 10/20/25 22:30 10/25/25 11:17 10 MG Metoprolol Succinate 50 mg DAILY PO 10/24/25 13:45 10/25/25 11:16 50 MG Laboratory Results Laboratory Tests 10/22/25 06:30 10/25/25 09:50 Chemistry Test 10/25/25 09:50 Calcium Level 8.1 mg/dL (8.7-10.4) L Urinalysis Test 10/19/25 07:30 Urine Color Light-yellow (Yellow) Urine Clarity Turbid (Clear) H Urine pH 5.5 (5.0-9.0) Urine Specific [place] 1.014 (1.001-1.035) Urine Protein Negative (Negative) Urine Ketones Negative (Negative) Urine Blood 1+ /uL (Negative) H Urine Nitrite Negative (Negative) Urine Bilirubin Negative (Negative) Urine Urobilinogen Normal mg/dL (Negative) Urine Leukocyte Esterase 3+ /uL (Negative) Urine RBC 6 /hpf (0 - 3) Urine Microscopic WBC 78 /HPF (0-3) H Urine Squamous Epithelial Cells Few /hpf (<5) Urine Bacteria Few /hpf (None Seen) H Urine Creatinine 40.34 mg/dL (30.0-125.0) Urine Protein/Creatinine Ratio 0.54 Urine Sodium 90 mmol/L (40-220) Urine Glucose Normal mg/dL (Normal) Urine Total Protein 21.6 mg/dL (1-14) H Microbiology Microbiology Date/Time Source Procedure Growth Status 10/20/25 03:30 Nose MRSA Screen - Final Complete Assessment/Plan Assessment/Plan acute kidney injury- secondary to dehydration-improved per labs yesterday mild chf from fluids dc fluids/add lasix small dose-- improved and at [facility] today associated obstructive uropathy- [facility] 2023 Creat 3.01>1.6>1.6 bph resume home meds/check bladder scan await above results thrombocytopenia-consult hematology oncology/explained to patient if does not get to see blood specialist here/see as op fluid blisters/ulcers from broken blisters lower extremities from fluid retention- wound care Dispo: Will get oxygen eval for dc planning Plan discussed with: Patient My Orders Orders - SANDRA LERNER MD Procedure Category Date Status Time Metoprolol Xl PHA 10/24/25 In Process Succinate (Toprol Xl) 13:45 Date of Service: Oct 25, 2025 Billing Provider: SANDRA LERNER MD Common Visit Codes: [id number] INP/OBS CARE(HIGH) SANDRA LERNER MD Oct 25, 2025 13:24
--- NOTE | 2025-10-26 00:42 | DVHSR ---
APPROVED REPORT EXAM: LIMITED Two-dimensional and M-mode echocardiogram. Blood Pressure: 93/57 mmHg INDICATION Eval Cardiac Function and EF RISK FACTORS Height: 6', Weight: 205 DIMENSIONS LVDd 3.8 (3.8-5.7cm) LA (2D) 4.1 (1.9-4.0cm) Aortic Root (2.0-3.7cm) LVDs 2.1 (2.5-4.0cm) LA (MM) (1.9-4.0cm) Aortic Cusp Exc (1.5-2.0cm) EF (%) 75.0 (55-70%) Rt. Atrium 4.3 (1.9-4.0cm) Asc. Aorta cm IVSd 1.2 (0.7-1.1cm) RV (D) (1.8-2.4cm) PWd 1.2 (0.7-1.1cm) Mitral Valve Mitral Mitral Stenosis E/A ratio 0.0 2D MVA cm2 Other Information Quality : Technically Limited Rhythm : Technically limited study due to body habitus. Conclusion TECHNICALLY VERY DIFFICULT STUDY MODERATELY DILATED RV AND RA LV EF IS 75% GROSSLY NORMAL VALVES NO EFFUSION
[2025-10-26 01:00] VITALS: BP 105/58; PULSE 77; RESP 18; TEMP 97.8; O2SAT 97
[2025-10-26 05:00] VITALS: BP 108/58; PULSE 71; RESP 20; TEMP 97.6; O2SAT 98
[2025-10-26] MEDS: ACETAMINOPHEN 325 MG TAB PO PRN (05:21)
[2025-10-26 08:00] VITALS: PULSE 81; RESP 18; O2SAT 95
[2025-10-26 08:46] VITALS: BP 91/51; PULSE 67; RESP 17; TEMP 97.4; O2SAT 92
[2025-10-26 13:00] VITALS: BP 95/53; PULSE 75; RESP 19; TEMP 98.2; O2SAT 100
[2025-10-26] MEDS ORDERED: FIN5T PO (15:17)
[2025-10-26 17:00] VITALS: BP 108/54; PULSE 78; RESP 17; TEMP 98.1; O2SAT 94
--- NOTE | 2025-10-26 19:33 | DVHDS2 ---
Discharge Summary Date of Admission Oct 19, 2025 at 09:22 Date of Discharge: Oct 26, 2025 Labs/Diagnostic Data: Laboratory Results Test 10/25/25 09:50 10/22/25 06:30 10/20/25 11:39 10/20/25 06:39 Sodium Level 142 mmol/L (136-145) Potassium Level 4.9 mmol/L (3.5-5.1) Chloride Level 109 mmol/L (98-107) Carbon Dioxide Level 26 mmol/L (20-31) Anion Gap 7 (5-15) Blood Urea Nitrogen 28 mg/dL (9-23) Creatinine 1.66 mg/dL (0.700-1.30) Glomerular Filtration Rate Calc 40 mL/min (>90) BUN/Creatinine Ratio 16.9 (10.0-20.0) Serum Glucose 126 mg/dL (74-106) Calcium Level 8.1 mg/dL (8.7-10.4) White Blood Count 3.4 10^3/uL (4.4-10.8) Red Blood Count 3.33 10^6/uL (4.5-5.90) Hemoglobin 10.2 g/dL (13.5-17.5) Hematocrit 31.4 % (41.0-53.0) Mean Corpuscular Volume 94.2 fL (80.0-100.0) Mean Corpuscular Hemoglobin 30.7 pg (28.0-32.0) Mean Corpuscular Hemoglobin Concent 32.6 g/dL (32.0-36.0) Red Cell Distribution Width 15.0 % (11.8-14.3) Platelet Count 67 10^3/uL (140-450) Mean Platelet Volume 10.2 fL (6.9-10.8) Neutrophils (%) (Auto) % (37.0-80.0) Lymphocytes (%) (Auto) % (10.0-50.0) Monocytes (%) (Auto) % (0.0-12.0) Basophils (%) (Auto) % (0.0-2.0) Neutrophils # (Auto) 10 ^3/uL (1.6-8.6) Lymphocytes # (Auto) 10 ^3/uL (0.4-5.4) Monocytes # (Auto) 10 ^3/uL (0-1.3) Differential Total Cells Counted 100.0 (100) Neutrophils % (Manual) 59 (37.0-80.0) Band Neutrophils % (Manual) 4 Lymphocytes % (Manual) 14 (10.0-50.0) Monocytes % (Manual) 22 (0-12) Eosinophils % (Manual) 1 (0-7) Basophils % (Manual) 0 (0.0-2.0) Metamyelocytes % (manual) 0 Myelocytes % (Manual) 0 Promyelocytes % (Manual) 0 Blast Cells % (Manual) 0 Reactive Lymphocytes 0 Platelet Estimate Decreased Prothrombin Time 11.6 sec (9.3-11.8) Prothrombin Time Diluted 37.2 sec (0.0-47.6) Dilute PT Confirmation Ratio 0.88 Ratio (0.00-1.34) Prothrombin Time INR 1.11 (0.9-1.15) Thrombin Time 17.5 sec (0.0-23.0) Lupus Anticoagulant PTT 42.8 sec (0.0-43.5) Dilute Javier Viper Venom (Lupus) 46.5 sec (0.0-47.0) Lupus Anticoagulant Interpretation Comment: (.) Lactate Dehydrogenase 280 U/L (120-246) Vitamin B12 Level 2606 pg/mL (211-911) Reticulocyte Count (auto) 0.99 % (0.5-1.5) Total Bilirubin 0.7 mg/dL (0.2-1.0) Aspartate Amino Transferase (AST) 19 U/L (13-40) Alanine Aminotransferase (ALT) 20 U/L (7-40) Alkaline Phosphatase 49 U/L (46-116) Total Protein 3.8 g/dL (5.7-8.2) Albumin 2.1 g/dL (3.2-4.8) Test 10/19/25 13:37 10/19/25 13:02 10/19/25 10:34 10/19/25 08:06 Hepatitis B Surface Antigen Negative (Negative) Hepatitis C Antibody Negative (Negative) Troponin I High Sensitivity 9 ng/L (</=54) Uric Acid 12.6 mg/dL (3.7-9.2) Phosphorus Level 6.7 mg/dL (2.4-5.1) Magnesium Level 2.0 mg/dL (1.6-2.6) Red Blood Cell Morphology Normal B-Type Natriuretic Peptide 47.48 pg/mL (0-100) Test 10/19/25 07:30 Urine Color Light-yellow (Yellow) Urine Clarity Turbid (Clear) Urine pH 5.5 (5.0-9.0) Urine Specific [place] 1.014 (1.001-1.035) Urine Protein Negative (Negative) Urine Ketones Negative (Negative) Urine Blood 1+ /uL (Negative) Urine Nitrite Negative (Negative) Urine Bilirubin Negative (Negative) Urine Urobilinogen Normal mg/dL (Negative) Urine Leukocyte Esterase 3+ /uL (Negative) Urine RBC 6 /hpf (0 - 3) Urine Microscopic WBC 78 /HPF (0-3) Urine Squamous Epithelial Cells Few /hpf (<5) Urine Bacteria Few /hpf (None Seen) Urine Creatinine 40.34 mg/dL (30.0-125.0) Urine Protein/Creatinine Ratio 0.54 Urine Sodium 90 mmol/L (40-220) Urine Glucose Normal mg/dL (Normal) Urine Total Protein 21.6 mg/dL (1-14) Other Laboratory Tests 10/25/25 09:50 10/22/25 06:30 Brief Hx & Hospital Course: 85-year-old male with a past medical history of bladder cancer (in remission), hypertension, and bilateral hip replacements presents with generalized weakness and bilateral lower extremity swelling. Patient reports that he initially experienced shortness of breath at home shortly before Thanksgiving and was taken to [facility], where he was admitted for eight days. He signed out against medical advice (AMA) due to concerns about lack of response to his calls for assistance. He returned home and remained sitting in his living room for about a day and a half before his neighbor found him and brought him to [facility]. There, he was noted to have diarrhea, which is ongoing, and had some vomiting that has since resolved. Due to his complex history and preference for [facility] where he receives most of his care, he was transferred here for further evaluation. At [facility], labs showed a creatinine of 3.20 and a WBC count of 81,000. Chest x-ray there was unremarkable. Labs in the ED here revealed normal white count, hemoglobin 12.2 and hematocrit 39.0, but platelets were low. Potassium was 5.2, chloride 112, CO2 17, BUN 119, creatinine 3.06, GFR 19, and calcium 8.0. Chest x-ray from outside remained unremarkable. Due to these findings and history, the patient will be admitted for further workup of acute kidney injury, hyperkalemia, and generalized weakness. Back had JEANETTE with creat 3.01 and also responded to IVF and got better seen by nephrology Condition at Discharge: Good Final Diagnosis/Problems List Acute kidney injury due to ATN Acute hypoxic respiratory failure Discharge Disposition: Home Discharge Instruct/Medications Diet: Regular Activity: No Restrictions, As Tolerated Follow Up/Referral: PCP in 7 days Medications: finasteride Scheduled Finasteride (Finasteride), 1 TAB PO DAILY, (Reported) Finasteride (Finasteride), 5 MG PO DAILY Metoprolol Succinate (Metoprolol Succinate Er), 1 TAB PO DAILY, (Reported) Tamsulosin Hcl (Tamsulosin Hcl), 1 CAP PO DAILY, (Reported) Discharge Statement: "Patient was advised to return to the ER or call 911 if any headaches, dizziness, shortness of breath, chest pain, abdominal pain, bleeding, fevers, or worsening of medical condition. Patient was counseled about treatment plan, medications, possible side effects, patientverbalized understanding. All questions were answered to the best of my ability. This discharge took greater then 30 minutes in planning, reviewing documentation, counseling the patient, and discussing with other team members." ASSESSMENT ASSESSMENT Assessment Acute kidney injury due to ATN Acute hypoxic respiratory failure Date of Service: Oct 26, 2025 Billing Provider: SANDRA LERNER MD Common Visit Codes: [id number] DISCH DAY >30min SANDRA LERNER MD Oct 26, 2025 19:33
== END 2025-10-26 17:03 | disposition home or self-care (01) | DRG 682 ==
LOC: ER 06:33 → OVERFLOW 09:22 → TELE-CENTR 18:35
PROVIDERS: ADMIT Hospitalist; ATTEND Hospitalist
DX: N17.0 Acute kidney failure with tubular necrosis (principal); J96.01 Acute respiratory failure with hypoxia; E87.20 Acidosis, unspecified; D69.6 Thrombocytopenia, unspecified; E88.09 Other disorders of plasma-protein metabolism, not elsewhere classified; D63.1 Anemia in chronic kidney disease; I13.0 Hypertensive heart and chronic kidney disease with heart failure and stage 1 through stage 4 chronic kidney disease, or unspecified chronic kidney disease; N18.9 Chronic kidney disease, unspecified; N13.8 Other obstructive and reflux uropathy; E86.0 Dehydration; N13.2 Hydronephrosis with renal and ureteral calculous obstruction; E87.5 Hyperkalemia; Z96.643 Presence of artificial hip joint, bilateral; I50.9 Heart failure, unspecified; N40.1 Benign prostatic hyperplasia with lower urinary tract symptoms; R33.8 Other retention of urine; E79.0 Hyperuricemia without signs of inflammatory arthritis and tophaceous disease; Z85.51 Personal history of malignant neoplasm of bladder; Z79.899 Other long term (current) drug therapy
CPT/HCPCS: 36415; 36600; 76775; 80048; 80053; 81001; 82570; 82607; 82805; 83615; 83735; 83880; 84100; 84156; 84300; 84484; 84550; 85007; 85027; 85045; 85610; 85613; 85670; 85705; 85732; 86803; 87081; 87340; 93005; 93306; 93970; 96360; 97110; 97116; 97163; 97530; G0378; P9047